=== PATIENT | male | born 1960 | race Caucasian/White ===

== ENCOUNTER → 2016-09-21 | Outpatient (CLI) | payer BC ==
[~2016-09-21] MED LIST: /BACL20TA OR; /DULO30CA OR; /ROPI1TA OR; LOVA20TA2 OR; NORT25CA2 OR; OXYB10TA OR; PREG100CA OR; VICO5TAB OR; ZANA4CAP OR
--- NOTE | 2016-09-29 01:10 | ECWPNPC ---
PATIENT NAME: ERVIN LAUREANO : 1960 GENDER: MALE VISIT DATE: 09/21/2016 DISCHARGE DATE: 09/21/16 0000 VISIT LOCKED DATE TIME: PHYSICIAN: JAMES BARRERA RESOURCE: JAMES ABRRERA REASON FOR APPOINTMENT 1. BACK AND LEGS HISTORY OF PRESENT ILLNESS HISTORY OF PRESENT ILLNESS: HERE FOR POST PROC. F/U.HAD BILAT. LUMBAR FACET BLOCK 05-28-16.REPORTS ONE MONTH IMPROVEMENT THEN PAIN GRADUALLY RETURNED TO BASELINE.HE DOESNT WANT ANYMORE PROCEDURES AT THIS POINT.FOLLOWS WITH [facility] FOR MEDICINE MANAGEMENT.RATING PAIN VAS 7/10.PAIN AGGREVATED BY TWISTING.RELIEVED WITH PILLOW PROPPING AND STRETCHING. FALL RISK SCREENING: SCREENING :NO FALLS IN THE PAST YEAR CURRENT MEDICATIONS TAKING LOVASTATIN 40 MG TABLET 1 TABLET WITH A MEAL ORALLY ONCE A DAY TAKING MIRALAX 1 PACKET 1 PACKET MIXED WITH 8 OUNCES OF FLUID ORALLY ONCE A DAY NEEDED TAKING VOLTAREN 1 % GEL APPLY 3 G TO LOWER BACK EXTERNALLY 2-3 TIMES A DAY NEEDED TAKING LYRICA 100 MG CAPSULE 1 CAPSULE-() ORALLY TWICE A DAY TAKING MILK OF MAGNESIA 400 MG/5ML SUSPENSION 5 ML NEEDED ORALLY TWICE A DAY TAKING CHLORTHALIDONE 25 MG TABLET 1 TABLET IN THE MORNING ORALLY ONCE A DAY TAKING AMBIEN 10 MG TABLET 1 TABLET AT BEDTIME NEEDED ORALLY NEEDED FOR SLEEP AT BEDTIME IF BENADRY FAILED X 1.5HRS MDD:1 TAKING NORCO 7.5-325 MG TABLET 1 TABLET NEEDED ORALLY EVERY 6 HRS (MDD: 4) TAKING PAMELOR 25 MG CAPSULE 1 CAPSULE (DR. RICKS) ORALLY TWICE DAILY NOT-TAKING BACLOFEN 20 MG TABLET 2 TABLET () ORALLY FOUR TIMES DAILY NEEDED SPASM, NOTES: 05-27-16 PM NOT-TAKING TIZANIDINE HCL 4 MG CAPSULE 2 CAP (DR RICKS) ORALLY TWICE DAILY NEEDED SPASM, NOTES: 05-27-16 PM NOT-TAKING SENNA 8.6 MG TABLET 1 TABLET ORALLY TWICE DAILY NEEDED, NOTES: 05-27-16 PM NOT-TAKING MELATONIN 3 MG TABLET 1-3 TABLET AT BEDTIME NEEDED WITH FOOD ORALLY ONCE A DAY NEEDED, NOTES: NONE NOT-TAKING CYMBALTA 30 MG CAPSULE DELAYED RELEASE PARTICLES 1 CAPSULE ORALLY TWICE A DAY, NOTES: 05-27-16 PM NOT-TAKING CELEBREX 200 MG CAPSULE 1 CAPSULE ORALLY ONCE A DAY, NOTES: 05-27-16 PM NOT-TAKING REQUIP 1 MG TABLET 1 TABLET 1 TO 3 HOURS BEFORE BEDTIME ORALLY ONCE A DAY, NOTES: 05-27-16 PM NOT-TAKING VALIUM 10 MG TABLET 1 TABLET NEEDED ORALLY 1 TAB 1HR PRE PROC. MDD1, NOTES: 05-28-16924 NOT-TAKING OXYCODONE HCL 5 MG TABLET 2 ORALLY 2 TAB 1HR PRE PROC. MDD2, NOTES: 05-28-16924 NOT-TAKING OXYBUTYNIN CHLORIDE 10 MG TABLET EXTENDED RELEASE 24 HOUR 1 TAB(DR. RICKS) ORALLY DAILY NOT-TAKING NORCO 5-325 MG TABLET 1/2 TABLET NEEDED ORALLY EVERY 6 HRS NOT-TAKING NASONEX 50 MCG/ACT SUSPENSION 2 SPRAYS IN EACH NOSTRIL NASALLY TWICE A DAY NOT-TAKING ROZEREM 8 MG TABLET 1 TABLET AT BEDTIME NEEDED ORALLY ONCE A DAY NOT-TAKING TECFIDERA 240 MG CAPSULE DELAYED RELEASE 1 CAPSULE ORALLY TWICE A DAY (DR RICKS) NOT-TAKING METHOTREXATE 2.5 MG TABLET 3 TABLETS ORALLY WEEKLY NOT-TAKING MAXALT-DIRECTOR WRITING 10 MG TABLET DISPERSIBLE 1 TAB (DR. RICKS) ORALLY NEEDED FOR MIGRAINE NOT-TAKING FLUOCINOLONE ACETONIDE SCALP 0.01 % OIL 1 APPLICATION TO AFFECTED AREA AT BEDTIME EXTERNALLY ONCE A DAY (OVERNIGHT OR >4HR BEFORE WASHING) MEDICATION LIST REVIEWED AND RECONCILED WITH THE PATIENT PAST MEDICAL HISTORY HYPERTENSION FATTY LIVER INSOMNIA HYPERCHOLESTEROLEMIA COPD MULTIPLE SCLEROSIS OTHER AND UNSPECIFIED ANGINA PECTORIS EPISTAXIS CHRONIC OBSTRUCTIVE ASTHMA, UNSPECIFIED OTHER SPECIFIED DISORDER OF PROSTATE ALLERGIES COPAXONE: INCREASED LIVER FUNCTION: SIDE EFFECTS AVENEX: INCREASED LFT'S: SIDE EFFECTS ENVIRONMENTAL ALLERGIES: CONGESTION: ALLERGY CEFZIL: SWELLING: ALLERGY SOCIAL HISTORY GENERAL: TOBACCO USE ARE YOU A:NONSMOKER LEARNING BARRIERS / SPECIAL NEEDS ORIENTED TO PLAN OF CARE: PATIENT, PAIN MANAGEMENT PATIENT, ORIENTED TO PLAN OF CARE: PATIENT, PAIN MANAGEMENT PATIENT. NEW PATIENT PAIN DIARY TODAY'S VISITNOTES FROM 0-10, WHAT LEVEL IS YOUR PAIN TODAY?0 PAIN CLINIC PFS, CLERGY, PUBLIC HEALTH REFERRALS PFS REFERRAL NEEDED?NO CLERGY REFERRAL NEEDED?NO PUBLIC HEALTH REFERRAL NEEDED?NO WAS THE PROVIDER NOTIFIED OF ANY PERTINENT INFO?NO PFS REFERRAL NEEDED?NO CLERGY REFERRAL NEEDED?NO PUBLIC HEALTH REFERRAL NEEDED?NO WAS THE PROVIDER NOTIFIED OF ANY PERTINENT INFO?NO REVIEW OF SYSTEMS CONSTITUTIONAL: ANY CHANGE IN YOUR MEDICAL CONDITION? NO . CHILLS NO . FEVER NO . INFECTION: DO YOU HAVE NEW INFECTIONS? NO . DO YOU HAVE HISTORY OF MRSA? NO . MUSCULOSKELETAL: ANY NEW PATTERNS OF PAIN OR NUMBNESS? YES, PAIN IN LOW BACK HAS EXTENDED TO THE LEFT SIDE . GASTROENTEROLOGY: ANY NEW CHANGE IN BOWEL CONTROL? NO . GENITOURINARY: ANY NEW CHANGE IN BLADDER CONTROL? NO . IS THERE A CHANCE YOU COULD BE ? NO . HEMATOLOGY/LYMPH: DO YOU TAKE ANY BLOOD THINNERS? (FOR EXAMPLE- COUMADIN, PLAVIX, AGGRENOX, PLATEL, PRADAXA, OR XARELTO) NO . WHEN WAS YOUR LAST DOSE? DATE: TIME: . NEUROLOGY: HAVE YOU FALLEN IN THE PAST 6 MONTHS? NO . ANY NEW EXTREMITY NUMBNESS OR WEAKNESS? NO . CARDIOLOGY: DO YOU HAVE A PACEMAKER OR DEFIBRILLATOR? NO . RESPIRATORY: HAVE YOU BEEN SICK IN THE PAST WEEK? NO . FEVER NO . FLU LIKE SYMPTOMS? NO . COUGH NO . INTEGUMENTARY: DO YOU HAVE ANY RASHES OR OPEN SORES? NO . ALLERGIC/IMMUNO: ARE YOU ALLERGIC TO SHELLFISH OR IV DYE? NO . ANY NEW ALLERGIES? NO . PSYCHIATRIC: DO YOU HAVE THOUGHTS OF HURTING YOURSELF OR SOMEONE ELSE? NO . ARE YOU ABUSED, NEGLECTED, OR IN AN UNSAFE ENVIRONMENT? NO . ENDOCRINOLOGY: ARE YOU DIABETIC? NO . OTHER: DO YOU NEED ANY PRESCRIPTIONS? NO . IF YES, PLEASE LIST: ____ . ANY NEW PROBLEMS WITH YOUR MEDICATIONS? NO . WHEN DID YOU LAST EAT? ____ . WHEN DID YOU LAST DRINK? ____ . WHAT DID YOU LAST DRINK? ____ . NAME OF PERSON DRIVING YOU HOME? ____ . DO YOU HAVE ANY OTHER QUESTIONS OR CONCERNS NO . REVIEWED BY: PROVIDER: JAMES BARRETO . VITAL SIGNS WT 265.8 LBS, HT 72 IN, BMI 36.05 INDEX, BP 158/80 MANUAL, HR 84 /MIN, RR 18 /MIN, TEMP 97.9 F, OXYGEN SAT % 96, NA INITIALS TL 1455, REVIEWED BY: CS. EXAMINATION GENERAL EXAMINATION: LUNGS:LUNG SOUNDS ARE CLEAR. HEART:HEART RATE REGULAR. MUSCULOSKELETAL:*, MUSCLE STRENGTH TESTING 5/5 BILATERAL, PALPATION: POSITIVE FOR PAIN OVER L/S SPINE. POSITIVE FOR PAIN OVER L/S PARSPINALS. DIAGNOSTIC:REVIEWED MRI L/S SPINE -02-26-16. ASSESSMENTS OSTEOARTHRITIS OF SPINE WITH RADICULOPATHY, LUMBAR REGION - M47.26 (PRIMARY) SPINAL STENOSIS OF LUMBOSACRAL REGION - M48.07 PROCEDURE CODES FA211 ESTABILISHED PATIENT [facility] CHARGE DISPOSITION & COMMUNICATION FOLLOW UP DISCHARGE TO PRIMARY CARE ELECTRONICALLY SIGNED BY MARY LOU GILLIAM ON 09/28/2016 AT 12:31 PM EDT DISCLAIMER : THIS IS A VISIT SUMMARY EXTRACTED FROM THE [employer] CHART. IT IS NOT A COPY OF THE [employer] PROGRESS NOTE. [place]
== END ==
LOC: M PAIN 15:00
PROVIDERS: ATTEND Nurse Practitioner Family
DX: Z09 Encounter for follow-up examination after completed treatment for conditions other than malignant neoplasm (principal); G89.29 Other chronic pain; M47.26 Other spondylosis with radiculopathy, lumbar region; M48.07 Spinal stenosis, lumbosacral region; I10 Essential (primary) hypertension; K76.0 Fatty (change of) liver, not elsewhere classified; G47.00 Insomnia, unspecified; E78.00 Pure hypercholesterolemia, unspecified; J44.9 Chronic obstructive pulmonary disease, unspecified; I20.9 Angina pectoris, unspecified; G35 Multiple sclerosis; R04.0 Epistaxis; Z88.8 Allergy status to other drugs, medicaments and biological substances; Z79.891 Long term (current) use of opiate analgesic; Z79.899 Other long term (current) drug therapy

== ENCOUNTER → 2016-12-16 | Outpatient (CLI) | payer BC, OTHER ==
--- NOTE | 2016-12-16 23:19 | ECWPNPC ---
PATIENT NAME: ERVIN LAUREANO : 1960 GENDER: MALE VISIT DATE: 12/16/2016 DISCHARGE DATE: 12/16/16 1134 VISIT LOCKED DATE TIME: PHYSICIAN: JAMES BARRERA RESOURCE: JAMES BARRERA REASON FOR APPOINTMENT 1. BACK HISTORY OF PRESENT ILLNESS HISTORY OF PRESENT ILLNESS: HERE FOR F/U CHRONIC LOW BACK PAIN AND BILATERAL LEG PAIN AND PARATHESIAS.HAS MULTIPLE SCLEROSIS DX AGE 23 [address] RICKS.HAD BILAT. LUMBAR FACET BLOCK 05-28-16.REPORTED ONE MONTH IMPROVEMENT THEN PAIN GRADUALLY RETURNED TO BASELINE.HE DOESNT WANT ANYMORE PROCEDURES AT THIS POINT.FOLLOWS WITH [facility]IMARY CARE FOR MEDICINE MANAGEMENT.RATING PAIN VAS 10/10.PAIN AGGREVATED BY TWISTING.RELIEVED WITH PILLOW PROPPING AND STRETCHING.PATIENT IS ASKING FOR STRONGER PAIN MEDICATION.DIAMANTE REQUESTED HE HAVE [facility]IMARY [facility] CONTACT US IN REGARDS TO OPIOD PAIN MEDICATION MANAGEMENT. PAIN THE PATIENT DESCRIBES THE PAIN... THE PATIENT DESCRIBES THE PAIN... FALL RISK SCREENING: SCREENING :NO FALLS IN THE PAST YEAR CURRENT MEDICATIONS TAKING AMBIEN 10 MG TABLET 1 TABLET AT BEDTIME NEEDED ORALLY NEEDED FOR SLEEP AT BEDTIME IF BENADRY FAILED X 1.5HRS MDD:1 TAKING CHLORTHALIDONE 25 MG TABLET 1 TABLET IN THE MORNING ORALLY ONCE A DAY TAKING LOVASTATIN 40 MG TABLET 1 TABLET WITH A MEAL ORALLY ONCE A DAY TAKING REQUIP 1 MG TABLET 1 TABLET 1 TO 3 HOURS BEFORE BEDTIME ORALLY ONCE A DAY, NOTES: 05-27-16 PM TAKING MIRALAX 1 PACKET 1 PACKET MIXED WITH 8 OUNCES OF FLUID ORALLY ONCE A DAY NEEDED TAKING VOLTAREN 1 % GEL APPLY 3 G TO LOWER BACK EXTERNALLY 2-3 TIMES A DAY NEEDED TAKING LYRICA 100 MG CAPSULE 1 CAPSULE-() ORALLY TWICE A DAY TAKING MILK OF MAGNESIA 400 MG/5ML SUSPENSION 5 ML NEEDED ORALLY TWICE A DAY TAKING PAMELOR 25 MG CAPSULE 1 CAPSULE (DR. RICKS) ORALLY TWICE DAILY NEEDED TAKING BACLOFEN 20 MG TABLET 2 TABLET () ORALLY FOUR TIMES DAILY NEEDED SPASM, NOTES: 05-27-16 PM TAKING TIZANIDINE HCL 4 MG CAPSULE 2 CAP (DR RICKS) ORALLY TWICE DAILY NEEDED SPASM, NOTES: 05-27-16 PM TAKING SENNA 8.6 MG TABLET 1 TABLET ORALLY TWICE DAILY NEEDED, NOTES: 05-27-16 PM TAKING MELATONIN 3 MG TABLET 1-3 TABLET AT BEDTIME NEEDED WITH FOOD ORALLY ONCE A DAY NEEDED, NOTES: NONE TAKING CYMBALTA 30 MG CAPSULE DELAYED RELEASE PARTICLES 1 CAPSULE ORALLY TWICE A DAY, NOTES: 05-27-16 PM TAKING CELEBREX 200 MG CAPSULE 1 CAPSULE ORALLY ONCE A DAY, NOTES: 05-27-16 PM TAKING OXYBUTYNIN CHLORIDE 10 MG TABLET EXTENDED RELEASE 24 HOUR 1 TAB(DR. RICKS) ORALLY DAILY TAKING NASONEX 50 MCG/ACT SUSPENSION 2 SPRAYS IN EACH NOSTRIL NASALLY TWICE A DAY TAKING ROZEREM 8 MG TABLET 1 TABLET AT BEDTIME NEEDED ORALLY ONCE A DAY TAKING MAXALT-HANDS HANGER 10 MG TABLET DISPERSIBLE 1 TAB (DR. RICKS) ORALLY NEEDED FOR MIGRAINE TAKING NORCO 7.5-325 MG TABLET 1 TABLET NEEDED ORALLY EVERY 8 HRS TAKING TRAZODONE HCL 50 MG TABLET 1 TABLET AT BEDTIME NEEDED ORALLY ONCE A DAY NOT-TAKING CLARITIN 10 MG TABLET 1 TABLET ORALLY ONCE A DAY NOT-TAKING ZOFRAN 4 MG/5ML SOLUTION 10 ML ORALLY ONCE A DAY NOT-TAKING AZITHROMYCIN (5 DAY) 250 MG TABLET DIRECTED ORALLY 2 PILLS ON DAY 1, THEN 1 PILL DAILY UNTIL GONE NOT-TAKING VALIUM 10 MG TABLET 1 TABLET NEEDED ORALLY 1 TAB 1HR PRE PROC. MDD1, NOTES: 05-28-16924 NOT-TAKING OXYCODONE HCL 5 MG TABLET 2 ORALLY 2 TAB 1HR PRE PROC. MDD2, NOTES: 05-28-16924 NOT-TAKING NORCO 5-325 MG TABLET 1/2 TABLET NEEDED ORALLY EVERY 6 HRS NOT-TAKING TECFIDERA 240 MG CAPSULE DELAYED RELEASE 1 CAPSULE ORALLY TWICE A DAY (DR RICKS) NOT-TAKING METHOTREXATE 2.5 MG TABLET 3 TABLETS ORALLY WEEKLY NOT-TAKING FLUOCINOLONE ACETONIDE SCALP 0.01 % OIL 1 APPLICATION TO AFFECTED AREA AT BEDTIME EXTERNALLY ONCE A DAY (OVERNIGHT OR >4HR BEFORE WASHING) MEDICATION LIST REVIEWED AND RECONCILED WITH THE PATIENT PAST MEDICAL HISTORY HYPERTENSION FATTY LIVER INSOMNIA HYPERCHOLESTEROLEMIA COPD MULTIPLE SCLEROSIS OTHER AND UNSPECIFIED ANGINA PECTORIS EPISTAXIS CHRONIC OBSTRUCTIVE ASTHMA, UNSPECIFIED OTHER SPECIFIED DISORDER OF PROSTATE ALLERGIES COPAXONE: INCREASED LIVER FUNCTION: SIDE EFFECTS AVENEX: INCREASED LFT'S: SIDE EFFECTS ENVIRONMENTAL ALLERGIES: CONGESTION: ALLERGY CEFZIL: SWELLING: ALLERGY SURGICAL HISTORY 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 YES, LBP INCREASED FROM INTERMITTENT TO CONSTANT, PT STATES PAIN IS 8-9/10 . CHILLS NO . FEVER NO . INFECTION: DO YOU HAVE NEW INFECTIONS? NO . DO YOU HAVE HISTORY OF MRSA? NO . MUSCULOSKELETAL: ANY NEW PATTERNS OF PAIN OR NUMBNESS? YES, INCREASED IN INTENSITY . GASTROENTEROLOGY: ANY NEW CHANGE IN BOWEL CONTROL? NO . GENITOURINARY: ANY NEW CHANGE IN BLADDER CONTROL? NO . IS THERE A CHANCE YOU COULD BE ? NO . HEMATOLOGY/LYMPH: DO YOU TAKE ANY BLOOD THINNERS? (FOR EXAMPLE- COUMADIN, PLAVIX, AGGRENOX, PLATEL, PRADAXA, OR XARELTO) NO . WHEN WAS YOUR LAST DOSE? DATE: TIME: . NEUROLOGY: HAVE YOU FALLEN IN THE PAST 6 MONTHS? YES, FELL DOWN 3 STEPS LANDING ON CONCRETE FLOOR. PT DENIES MAJOR INJURIES REQUIRING MEDICAL ATTENTION. PT REPORTS FALL RESULTED FROM PAIN. . ANY NEW EXTREMITY NUMBNESS OR WEAKNESS? NO . CARDIOLOGY: DO YOU HAVE A PACEMAKER OR DEFIBRILLATOR? NO . RESPIRATORY: HAVE YOU BEEN SICK IN THE PAST WEEK? NO . FEVER NO . FLU LIKE SYMPTOMS? NO . COUGH NO . INTEGUMENTARY: DO YOU HAVE ANY RASHES OR OPEN SORES? NO . ALLERGIC/IMMUNO: ARE YOU ALLERGIC TO SHELLFISH OR IV DYE? NO . ANY NEW ALLERGIES? NO . PSYCHIATRIC: DO YOU HAVE THOUGHTS OF HURTING YOURSELF OR SOMEONE ELSE? NO . ARE YOU ABUSED, NEGLECTED, OR IN AN UNSAFE ENVIRONMENT? NO . ENDOCRINOLOGY: ARE YOU DIABETIC? NO . OTHER: DO YOU NEED ANY PRESCRIPTIONS? NO. PT STATES PCP DR SCHWAB PRESCRIBED PT VICODIN, THEN TOOK HIM OFF VICODIN AND TOLD HIM TO COME TO PAIN CLINIC . IF YES, PLEASE LIST: ____ . ANY NEW PROBLEMS WITH YOUR MEDICATIONS? NO . WHEN DID YOU LAST EAT? ____ . WHEN DID YOU LAST DRINK? ____ . WHAT DID YOU LAST DRINK? ____ . NAME OF PERSON DRIVING YOU HOME? ____ . DO YOU HAVE ANY OTHER QUESTIONS OR CONCERNS NO . REVIEWED BY: PROVIDER: JAMES BARRETO . VITAL SIGNS WT 270 LBS, HT 72 IN, BMI 36.61 INDEX, BP 145/78 MM HG, HR 72 /MIN, RR 20 /MIN, TEMP 98.4 F, OXYGEN SAT % 97%, SAFE IN ENV? (Y/N) Y, NA INITIALS SC 10:53, REVIEWED BY: EM. EXAMINATION GENERAL EXAMINATION: LUNGS:LUNG SOUNDS ARE CLEAR. HEART:HEART RATE REGULAR. MUSCULOSKELETAL:*, MUSCLE STRENGTH TESTING 3/5 RIGHT, AND 5/5 LEFT. PALPATION: POSITIVE FOR PAIN OVER L/S SPINE. POSITIVE FOR PAIN OVER L/S PARSPINALSNEUROMUSCULATURE-REPORTS PARATHESIAS TO LIGHT TOUCH R>L. DIAGNOSTIC:REVIEWED MRI L/S SPINE -02-26-16. ASSESSMENTS OSTEOARTHRITIS OF SPINE WITH RADICULOPATHY, LUMBAR REGION - M47.26 (PRIMARY) SPINAL STENOSIS OF LUMBOSACRAL REGION - M48.07 NEUROPATHY - G62.9 TREATMENT OSTEOARTHRITIS OF SPINE WITH RADICULOPATHY, LUMBAR REGION INCREASE LYRICA CAPSULE, 200 MG, 1, ORALLY, TWICE A DAY, 30 DAYS, 60, REFILLS 2 PROCEDURE CODES FA211 ESTABILISHED PATIENT [facility] CHARGE DISPOSITION & COMMUNICATION FOLLOW UP 2 MONTHS ELECTRONICALLY SIGNED BY MARY LOU GILLIAM ON 12/16/2016 AT 01:43 PM EDT DISCLAIMER : THIS IS A VISIT SUMMARY EXTRACTED FROM THE [employer] CHART. IT IS NOT A COPY OF THE [employer] PROGRESS NOTE. [place]
== END ==
LOC: M PAIN 10:00
PROVIDERS: ATTEND Nurse Practitioner Family
DX: G89.29 Other chronic pain (principal); M47.26 Other spondylosis with radiculopathy, lumbar region; M48.07 Spinal stenosis, lumbosacral region; G62.9 Polyneuropathy, unspecified; I10 Essential (primary) hypertension; F51.01 Primary insomnia; E78.2 Mixed hyperlipidemia; J44.9 Chronic obstructive pulmonary disease, unspecified; G35 Multiple sclerosis; J30.89 Other allergic rhinitis; Z88.8 Allergy status to other drugs, medicaments and biological substances; Z79.899 Other long term (current) drug therapy

== ENCOUNTER → 2016-12-21 | Outpatient (REF) | payer BC ==
[2016-12-21 14:13] LABS: ALBUMIN 3.9 GM/DL (3.2-5.2); ALBUMIN/GLOBULIN RATIO 1.34 (1.00-1.93); ALKALINE PHOSPHATASE 155 U/L (45-117); ALT/SGPT 236 U/L (12-78); ANION GAP 5 MEQ/L (8-16); AST/SGOT 239 U/L (15-37); BILIRUBIN,TOTAL 0.9 MG/DL (0.2-1.0); BLOOD UREA NITROGEN 7 MG/DL (7-18); CALCIUM LEVEL 10.4 MG/DL (8.5-10.1); CARBON DIOXIDE LEVEL 33 MEQ/L (21-32); CHLORIDE LEVEL 101 MEQ/L (98-107); CREATININE FOR GFR 0.68 MG/DL (0.70-1.30); GLOMERULAR FILTRATION RATE > 60.0 (>56); GLUCOSE, FASTING 83 MG/DL (70-105); POTASSIUM SERUM 3.8 MEQ/L (3.5-5.1); SODIUM LEVEL 139 MEQ/L (136-145); TOTAL PROTEIN 6.8 GM/DL (6.4-8.2)
[2016-12-21 14:15] LABS: FOLATE 10.6 NG/ML; VITAMIN B12 LEVEL 439 PG/ML
[2016-12-21 14:22] LABS: BASO % 0.6 % (0.0-1.0); EOS # 0.2 K/mm3 (0.0-0.50); EOS % 2.8 % (0.0-3.0); LARGE UNSTAINED CELL # 0.1 K/mm3 (0.0-0.4); LARGE UNSTAINED CELL % 1.5 % (0.0-4.0); LYMPH # 1.3 K/mm3 (1.5-4.5); LYMPH % 21.3 % (24.0-44.0); MEAN CORPUSCULAR HEMOGLOBIN 34.4 pg (27.0-33.0); MEAN CORPUSCULAR HGB CONC 34.4 g/dl (32.0-36.5); MEAN CORPUSCULAR VOLUME 99.9 fl (80.0-96.0); MONO # 0.5 K/mm3 (0.0-0.8); MONO % 8.9 % (0.0-5.0); NEUTROPHILS # 3.7 K/mm3 (1.8-7.7); NEUTROPHILS % 64.8 % (36.0-66.0); PLATELET COUNT, AUTOMATED 187 k/mm3 (150-450); WHITE BLOOD COUNT 5.8 K/mm3 (4.0-10.0)
== END ==
LOC: M LABDRAW1 13:16
PROVIDERS: ATTEND Psychiatry & Neurology Neurology
DX: G35 Multiple sclerosis (principal)

== ENCOUNTER 2017-01-04 16:10 | Emergency (ER) | payer OTHER, BC ==
[~2017-01-04] VITALS: Ht 180.3 cm; Wt 120.6 kg
[2017-01-04] MEDS ORDERED: LORA10TA2 (16:22)
[2017-01-04] MEDS ORDERED: ROPI1TAB (16:22)
[2017-01-04] MEDS ORDERED: OXYB10TA (16:22)
[2017-01-04] MEDS ORDERED: DULO1CAP2 (16:22)
[2017-01-04] MEDS ORDERED: TIZANIDINE (16:22)
[2017-01-04] MEDS ORDERED: BACL1TAB9 (16:22)
[2017-01-04] MEDS ORDERED: HYDR-3716 (16:22)
[2017-01-04] MEDS ORDERED: NORT25CA2 (16:22)
[2017-01-04] MEDS ORDERED: LOVA40TA (16:22)
[2017-01-04] MEDS ORDERED: CHLO125TA (16:22)
[2017-01-04] MEDS ORDERED: ZOLM5TAB2 (16:22)
[2017-01-04] MEDS ORDERED: ZOLP10TA2 PO (16:22)
[2017-01-04] MEDS ORDERED: TRAZ50TA11 (16:22)
[2017-01-04] MEDS ORDERED: PREG100CA (16:22)
[2017-01-04] MEDS ORDERED: PERCOCET 5MG/325MG TAB PO ONE (17:30)
[2017-01-04] MEDS ORDERED: KETOROLAC 60 MG/2 ML VIAL (J1885) IM ONE (17:30)
[2017-01-04] MEDS ORDERED: diazePAM 5 MG TAB PO ONE (17:30)
--- NOTE | 2017-01-04 20:40 | REPUSA ---
MRI of the lumbar spine without contrast Clinical statement: Pain. Technique: Multiecho multiplanar MRI images of the lumbar spine were obtained without administration of contrast. Comparison: 10/27/2015. Findings: The lumbar vertebral bodies are in satisfactory position and alignment. No fractures or dis locations are demonstrated. Normal heterogeneous bone marrow signal is noted. No osseous tumors are s een. The intervertebral disc heights are well maintained and demonstrate normal signal. The filum ter minale and conus medullaris appear unremarkable. The spinal cord demonstrates normal signal and conto ur. The surrounding soft tissues are within normal limits. At the lumbar vertebral levels, there is no evidence of disc herniation or protrusion. There is no ce ntral canal stenosis. The neural foramina are patent bilaterally. Impression: No focal abnormality to explain the patient's pain.
[2017-01-04] MEDS ORDERED: SKEL800T97 PO (20:53)
[2017-01-04 20:57] VITALS: BP 169/77
== END 2017-01-04 20:59 | disposition home or self-care (01) ==
LOC: M ED 17:18
DX: G89.29 Other chronic pain (principal); M54.5 Low back pain; I10 Essential (primary) hypertension; G35 Multiple sclerosis; Z79.899 Other long term (current) drug therapy; Z88.0 Allergy status to penicillin; Z88.1 Allergy status to other antibiotic agents; Z87.891 Personal history of nicotine dependence
CPT/HCPCS: 72148; 96372; 99282; J1885

== ENCOUNTER → 2017-01-07 | Outpatient (CLI) | payer BC ==
[~2017-01-07] MED LIST changes: +BACL-67; +CHLO125TA; +DULO1CAP2; +HYDR-3716; +LORA10TA2; +LOVA40TA; +LYRI100C10; +NORT25CA2; +OXYB10TA; +ROPI1TAB; +SKEL-29 PO; +TIZANIDINE; +TRAZ50TA4; +ZOLM5TAB2; +ZOLP10TA2
--- NOTE | 2017-01-12 23:40 | ECWPNPC ---
PATIENT NAME: ERVIN LAUREANO : 1960 GENDER: MALE VISIT DATE: 01/07/2017 DISCHARGE DATE: 01/07/17 1548 VISIT LOCKED DATE TIME: PHYSICIAN: JAMES BARRERA RESOURCE: JAMES BARRERA REASON FOR APPOINTMENT 1. MEDS HISTORY OF PRESENT ILLNESS HISTORY OF PRESENT ILLNESS: HERE FOR F/U AND MANAGEMENT OF CHRONIC LOW BACK AND RIGHT LEG PAIN.RATING PAIN VAS 9/10.RAN OUT OF PAIN MEDICATION 2 WEEKS AGO AND PAIN HAS BECOME UNBEARABLE.WENT TO ER FOR SEVERE PAIN FLARE ON 02-03-17.AT HIS LAST VISIT ,I INCREASED LYRICA TO 200MG BID.PATIENT STATES HE DID NOT HAVE ANY IMPROVEMENT.HE WAS GIVEN A SMALL AMOUNT OF SKELAXIN AND PERCOCET AT MOST RECENT ER VISIT THAT PATIENT FOUND HELPFUL.WE ARE IN PROCESS OF COMMUNICATING WITH PRIMARY CARE REGARDING [facility] USE OF OPIOD PAIN MEDICATION AND MEDICINE MANAGEMENT.HE IS NOT INTERESTED IN INJECTION THERAPY. PAIN THE PATIENT DESCRIBES THE PAIN... FALL RISK SCREENING: SCREENING :NO FALLS IN THE PAST YEAR CURRENT MEDICATIONS TAKING TRAZODONE HCL 50 MG TABLET 1 TABLET AT BEDTIME NEEDED ORALLY ONCE A DAY TAKING LYRICA 200 MG CAPSULE 1 ORALLY TWICE A DAY TAKING AMBIEN 10 MG TABLET 1 TABLET AT BEDTIME NEEDED ORALLY NEEDED FOR SLEEP AT BEDTIME IF BENADRY FAILED X 1.5HRS MDD:1 TAKING CHLORTHALIDONE 25 MG TABLET 1 TABLET IN THE MORNING ORALLY ONCE A DAY TAKING LOVASTATIN 40 MG TABLET 1 TABLET WITH A MEAL ORALLY ONCE A DAY TAKING REQUIP 1 MG TABLET 1 TABLET 1 TO 3 HOURS BEFORE BEDTIME ORALLY ONCE A DAY TAKING MIRALAX 1 PACKET 1 PACKET MIXED WITH 8 OUNCES OF FLUID ORALLY ONCE A DAY NEEDED TAKING VOLTAREN 1 % GEL APPLY 3 G TO LOWER BACK EXTERNALLY 2-3 TIMES A DAY NEEDED TAKING MILK OF MAGNESIA 400 MG/5ML SUSPENSION 5 ML NEEDED ORALLY TWICE A DAY TAKING PAMELOR 25 MG CAPSULE 1 CAPSULE (DR. RICKS) ORALLY TWICE DAILY NEEDED TAKING BACLOFEN 20 MG TABLET 2 TABLET () ORALLY FOUR TIMES DAILY NEEDED SPASM TAKING TIZANIDINE HCL 4 MG CAPSULE 2 CAP (DR RICKS) ORALLY TWICE DAILY NEEDED SPASM TAKING SENNA 8.6 MG TABLET 1 TABLET ORALLY TWICE DAILY NEEDED TAKING MELATONIN 3 MG TABLET 1-3 TABLET AT BEDTIME NEEDED WITH FOOD ORALLY ONCE A DAY NEEDED, NOTES: NONE TAKING CYMBALTA 30 MG CAPSULE DELAYED RELEASE PARTICLES 1 CAPSULE ORALLY TWICE A DAY TAKING CELEBREX 200 MG CAPSULE 1 CAPSULE ORALLY ONCE A DAY TAKING OXYBUTYNIN CHLORIDE 10 MG TABLET EXTENDED RELEASE 24 HOUR 1 TAB(DR. RICKS) ORALLY DAILY TAKING NASONEX 50 MCG/ACT SUSPENSION 2 SPRAYS IN EACH NOSTRIL NASALLY TWICE A DAY TAKING ROZEREM 8 MG TABLET 1 TABLET AT BEDTIME NEEDED ORALLY ONCE A DAY TAKING MAXALT-TROUT FARMER 10 MG TABLET DISPERSIBLE 1 TAB (DR. RICKS) ORALLY NEEDED FOR MIGRAINE TAKING NORCO 7.5-325 MG TABLET 1 TABLET NEEDED ORALLY EVERY 8 HRS TAKING PREDNISONE 20 MG TABLET 5 TABLETS X 3 DAYS, 4 TAB X 3 DAYS, 3 X 3 DAYS, 2 X 3 DAYS, 1 X 3 DAYS, 1/2 X 4 DAYS ORALLY ONCE A DAY TAKING METAXALONE 800 MG TABLET 1 TABLET ORALLY THREE TIMES A DAY NOT-TAKING CLARITIN 10 MG TABLET 1 TABLET ORALLY ONCE A DAY NOT-TAKING ZOFRAN 4 MG/5ML SOLUTION 10 ML ORALLY ONCE A DAY NOT-TAKING AZITHROMYCIN (5 DAY) 250 MG TABLET DIRECTED ORALLY 2 PILLS ON DAY 1, THEN 1 PILL DAILY UNTIL GONE NOT-TAKING VALIUM 10 MG TABLET 1 TABLET NEEDED ORALLY 1 TAB 1HR PRE PROC. MDD1, NOTES: 05-28-16924 NOT-TAKING OXYCODONE HCL 5 MG TABLET 2 ORALLY 2 TAB 1HR PRE PROC. MDD2, NOTES: 05-28-16924 NOT-TAKING NORCO 5-325 MG TABLET 1/2 TABLET NEEDED ORALLY EVERY 6 HRS NOT-TAKING TECFIDERA 240 MG CAPSULE DELAYED RELEASE 1 CAPSULE ORALLY TWICE A DAY (DR RICKS) NOT-TAKING METHOTREXATE 2.5 MG TABLET 3 TABLETS ORALLY WEEKLY NOT-TAKING FLUOCINOLONE ACETONIDE SCALP 0.01 % OIL 1 APPLICATION TO AFFECTED AREA AT BEDTIME EXTERNALLY ONCE A DAY (OVERNIGHT OR >4HR BEFORE WASHING) MEDICATION LIST REVIEWED AND RECONCILED WITH THE PATIENT PAST MEDICAL HISTORY HYPERTENSION FATTY LIVER INSOMNIA HYPERCHOLESTEROLEMIA COPD MULTIPLE SCLEROSIS OTHER AND UNSPECIFIED ANGINA PECTORIS EPISTAXIS CHRONIC OBSTRUCTIVE ASTHMA, UNSPECIFIED OTHER SPECIFIED DISORDER OF PROSTATE ALLERGIES COPAXONE: INCREASED LIVER FUNCTION: SIDE EFFECTS AVENEX: INCREASED LFT'S: SIDE EFFECTS ENVIRONMENTAL ALLERGIES: CONGESTION: ALLERGY CEFZIL: SWELLING: ALLERGY SURGICAL HISTORY 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 CONSTITUTIONAL: ANY CHANGE IN YOUR MEDICAL CONDITION? NO . CHILLS NO . FEVER NO . INFECTION: DO YOU HAVE NEW INFECTIONS? NO . DO YOU HAVE HISTORY OF MRSA? NO . MUSCULOSKELETAL: ANY NEW PATTERNS OF PAIN OR NUMBNESS? YES, PT STATES PAIN IN LOWER BACK AND RIGHT LEG WERE INTERMITTENT, AND NOW PAIN IS CONSTANT. PT STATES HE WENT TO [facility] ER ON 01/05/17 FOR LBP AND WAS TX'D WITH METAXALONE. PT STATES NEW RX TOOK AWAY BACK SPASMS & BROUGHT PAIN 02/25 TO 10/26.&NBSP;. GASTROENTEROLOGY: ANY NEW CHANGE IN BOWEL CONTROL? NO . GENITOURINARY: ANY NEW CHANGE IN BLADDER CONTROL? NO . IS THERE A CHANCE YOU COULD BE ? NO . HEMATOLOGY/LYMPH: DO YOU TAKE ANY BLOOD THINNERS? (FOR EXAMPLE- COUMADIN, PLAVIX, AGGRENOX, PLATEL, PRADAXA, OR XARELTO) NO . WHEN WAS YOUR LAST DOSE? DATE: TIME: . NEUROLOGY: HAVE YOU FALLEN IN THE PAST 6 MONTHS? NO . ANY NEW EXTREMITY NUMBNESS OR WEAKNESS? NO . CARDIOLOGY: DO YOU HAVE A PACEMAKER OR DEFIBRILLATOR? NO . RESPIRATORY: HAVE YOU BEEN SICK IN THE PAST WEEK? NO . FEVER NO . FLU LIKE SYMPTOMS? NO . COUGH NO . INTEGUMENTARY: DO YOU HAVE ANY RASHES OR OPEN SORES? NO . ALLERGIC/IMMUNO: ARE YOU ALLERGIC TO SHELLFISH OR IV DYE? NO . ANY NEW ALLERGIES? NO . PSYCHIATRIC: DO YOU HAVE THOUGHTS OF HURTING YOURSELF OR SOMEONE ELSE? NO . ARE YOU ABUSED, NEGLECTED, OR IN AN UNSAFE ENVIRONMENT? NO . ENDOCRINOLOGY: ARE YOU DIABETIC? NO . OTHER: DO YOU NEED ANY PRESCRIPTIONS? YES, ASKING FOR MORE METAXALONE . IF YES, PLEASE LIST: ____ . ANY NEW PROBLEMS WITH YOUR MEDICATIONS? NO . WHEN DID YOU LAST EAT? ____ . WHEN DID YOU LAST DRINK? ____ . WHAT DID YOU LAST DRINK? ____ . NAME OF PERSON DRIVING YOU HOME? ____ . DO YOU HAVE ANY OTHER QUESTIONS OR CONCERNS NO . VITAL SIGNS WT 266.8 LBS, HT 72 IN, BMI 36.18 INDEX, BP 154/83 MM HG, HR 73 /MIN, RR 16 /MIN, TEMP 97.8 F, OXYGEN SAT % 96%, SAFE IN ENV? (Y/N) Y, NA INITIALS TL 1448, REVIEWED BY: CASTRO. EXAMINATION GENERAL EXAMINATION: LUNGS:LUNG SOUNDS ARE CLEAR. HEART:HEART RATE REGULAR. MUSCULOSKELETAL:*, MUSCLE STRENGTH TESTING 3/5 RIGHT, AND 5/5 LEFT. PALPATION: POSITIVE FOR PAIN OVER L/S SPINE. POSITIVE FOR PAIN OVER L/S PARSPINALSNEUROMUSCULATURE-REPORTS PARATHESIAS TO LIGHT TOUCH R>L. DIAGNOSTIC:REVIEWED MRI L/S SPINE -02-26-16. ASSESSMENTS OSTEOARTHRITIS OF SPINE WITH RADICULOPATHY, LUMBAR REGION - M47.26 (PRIMARY) SPINAL STENOSIS OF LUMBOSACRAL REGION - M48.07 NEUROPATHY - G62.9 TREATMENT OSTEOARTHRITIS OF SPINE WITH RADICULOPATHY, LUMBAR REGION REFILL LYRICA CAPSULE, 200 MG, 1, ORALLY, TWICE A DAY, 30 DAYS, 60, REFILLS 2 REFILL TIZANIDINE HCL CAPSULE, 4 MG, 1, ORALLY, Q8H PRN, 30 DAY(S), 90, REFILLS 1 REFILL NORCO TABLET, 7.5-325 MG, 1 TABLET NEEDED, ORALLY, EVERY 8 HRS, 30 DAY(S), 90 TABLET, REFILLS 0 START LYRICA CAPSULE, 200 MG, 1 CAPSULE, ORALLY, TID MDD3, 30 DAY(S), 90, REFILLS 1 PROCEDURE CODES FA211 ESTABILISHED PATIENT [facility] CHARGE DISPOSITION & COMMUNICATION FOLLOW UP 4 WEEKS ELECTRONICALLY SIGNED BY MARY LOU GILLIAM ON 01/12/2017 AT 01:04 PM EDT DISCLAIMER : THIS IS A VISIT SUMMARY EXTRACTED FROM THE [employer] CHART. IT IS NOT A COPY OF THE [employer] PROGRESS NOTE. MTDD
== END ==
LOC: M PAIN 14:40
PROVIDERS: ATTEND Nurse Practitioner Family
DX: G89.29 Other chronic pain (principal); M47.26 Other spondylosis with radiculopathy, lumbar region; M48.07 Spinal stenosis, lumbosacral region; G62.9 Polyneuropathy, unspecified; M79.604 Pain in right leg; I10 Essential (primary) hypertension; F51.01 Primary insomnia; E78.2 Mixed hyperlipidemia; J44.9 Chronic obstructive pulmonary disease, unspecified; G35 Multiple sclerosis; J31.0 Chronic rhinitis; Z88.8 Allergy status to other drugs, medicaments and biological substances; Z79.899 Other long term (current) drug therapy

== ENCOUNTER 2017-01-25 14:00 | Outpatient (CLI) | payer BC ==
[~2017-01-25] VITALS: Ht 182.9 cm; Wt 109.1 kg
[~2017-01-25 14:00] MED LIST changes: -BACL-67; +BACL1TAB9; -LYRI100C10; +PREG100CA; -SKEL-29 PO; +SKEL800T97 PO; +TRAZ50TA11; -TRAZ50TA4; -ZOLP10TA2; +ZOLP10TA2 PO; +methylPREDNISolone 1,000 MG, VIAL MATE ADAPTER 1 EACH in D5W 250 ML IV ONE
[2017-01-25] MEDS ORDERED: ZOMI2.5T4 PO (16:13)
[2017-01-25] MEDS ORDERED: TIZA2CAP3 PO (16:13)
[2017-01-25] MEDS ORDERED: AMBI5TAB PO (16:14)
== END 2017-01-25 15:50 | disposition home or self-care (01) ==
LOC: M INFU 14:00
PROVIDERS: ATTEND Psychiatry & Neurology Neurology
DX: G35 Multiple sclerosis (principal); Z87.891 Personal history of nicotine dependence; Z88.1 Allergy status to other antibiotic agents; Z88.0 Allergy status to penicillin; Z79.899 Other long term (current) drug therapy
CPT/HCPCS: 96365; J2930

== ENCOUNTER 2017-01-26 11:52 | Outpatient (CLI) | payer BC ==
[~2017-01-26] VITALS: Ht 182.9 cm; Wt 109.1 kg
[~2017-01-26 11:52] MED LIST changes: +AMBI5TAB PO; +TIZA2CAP3 PO; +ZOMI2.5T4 PO; -methylPREDNISolone 1,000 MG, VIAL MATE ADAPTER 1 EACH in D5W 250 ML IV ONE
[2017-01-26] MEDS ORDERED: methylPREDNISolone 1,000 MG, VIAL MATE ADAPTER 1 EACH in D5W 250 ML IV ONE (13:00)
== END 2017-01-26 14:00 | disposition home or self-care (01) ==
LOC: M INFU 11:52
PROVIDERS: ATTEND Psychiatry & Neurology Neurology
DX: G35 Multiple sclerosis (principal); Z87.891 Personal history of nicotine dependence; Z88.0 Allergy status to penicillin; Z88.1 Allergy status to other antibiotic agents; Z79.899 Other long term (current) drug therapy
CPT/HCPCS: 96365; J2930

== ENCOUNTER 2017-01-28 09:23 | Outpatient (CLI) | payer BC ==
[~2017-01-28] VITALS: Ht 182.9 cm; Wt 109.0 kg
[2017-01-28] MEDS ORDERED: methylPREDNISolone 1,000 MG, VIAL MATE ADAPTER 1 EACH in D5W 250 ML IV ONE (09:30)
== END 2017-01-28 11:30 | disposition home or self-care (01) ==
LOC: M INFU 09:23
PROVIDERS: ATTEND Psychiatry & Neurology Neurology
DX: G35 Multiple sclerosis (principal); Z87.891 Personal history of nicotine dependence; Z79.899 Other long term (current) drug therapy; Z88.0 Allergy status to penicillin; Z88.1 Allergy status to other antibiotic agents
CPT/HCPCS: 96365; J2930

== ENCOUNTER 2017-01-29 14:39 | Outpatient (CLI) | payer BC ==
[~2017-01-29] VITALS: Ht 182.9 cm; Wt 81.8 kg
[~2017-01-29 14:39] MED LIST changes: +methylPREDNISolone 1,000 MG, VIAL MATE ADAPTER 1 EACH in D5W 250 ML IV ONE
== END 2017-01-29 16:00 | disposition home or self-care (01) ==
LOC: M INFU 14:39
PROVIDERS: ATTEND Psychiatry & Neurology Neurology
DX: G35 Multiple sclerosis (principal); Z87.891 Personal history of nicotine dependence; Z79.899 Other long term (current) drug therapy; Z88.0 Allergy status to penicillin; Z88.1 Allergy status to other antibiotic agents
CPT/HCPCS: 96365; J2930

== ENCOUNTER 2017-01-30 07:51 | Outpatient (CLI) | payer OTHER, BC ==
[~2017-01-30 07:51] MED LIST changes: -methylPREDNISolone 1,000 MG, VIAL MATE ADAPTER 1 EACH in D5W 250 ML IV ONE
[2017-01-30] MEDS ORDERED: methylPREDNISolone 1,000 MG, VIAL MATE ADAPTER 1 EACH in D5W 250 ML IV ONE (08:00)
== END 2017-01-30 09:30 | disposition home or self-care (01) ==
LOC: M INFU 07:51
PROVIDERS: ATTEND Psychiatry & Neurology Neurology
DX: G35 Multiple sclerosis (principal); Z88.0 Allergy status to penicillin; Z88.1 Allergy status to other antibiotic agents; Z79.899 Other long term (current) drug therapy; Z87.891 Personal history of nicotine dependence
CPT/HCPCS: 96374; J2930

== ENCOUNTER → 2017-02-15 | Outpatient (CLI) | payer BC, OTHER ==
--- NOTE | 2017-03-07 00:32 | ECWPNPC ---
PATIENT NAME: ERVIN LAUREANO : 1960 GENDER: MALE VISIT DATE: 02/15/2017 DISCHARGE DATE: 02/15/17 1031 VISIT LOCKED DATE TIME: PHYSICIAN: JAMES BARRERA RESOURCE: JAMES BARRERA REASON FOR APPOINTMENT 1. BACK/LEG HISTORY OF PRESENT ILLNESS HISTORY OF PRESENT ILLNESS: HERE FOR F/U AND MANAGEMENT OF CHRONIC LOW BACK PAIN AND GENERALIZED BACK PAIN.DESCRIBES PAIN CONSTANT THROBBING AND STABBING.REPORTS FALL INJURY 1 WEEK AGO AND HE WAS EVALUATED BY PRIMARY CARE.NO IMAGING WAS ORDERED.STATES ACUTE INCREASE IN PAIN POST FALL HAS IMPROVED.DENIES LOSS OF CONTROL OF BOWELS OR BLADDER.CURRENTLY USING HYDROCODONE 7.5/325 AND SKELAXIN 800MG PRN FOR PAIN WITH GOOD RESULTS.ALSO USING ICE AND HEAT.ALSO USING LYRICA 200MG TID.RATING PAIN VAS 8/10. PAIN THE PATIENT DESCRIBES THE PAIN... FALL RISK SCREENING: SCREENING :NO FALLS IN THE PAST YEAR CURRENT MEDICATIONS TAKING PANTOPRAZOLE SODIUM 20 MG TABLET DELAYED RELEASE 1 TABLET ORALLY ONCE A DAY TAKING CHLORTHALIDONE 25 MG TABLET 1 TABLET IN THE MORNING ORALLY ONCE A DAY TAKING TRAZODONE HCL 50 MG TABLET 1 TABLET AT BEDTIME NEEDED ORALLY ONCE A DAY TAKING AMBIEN 10 MG TABLET 1 TABLET AT BEDTIME NEEDED ORALLY NEEDED FOR SLEEP AT BEDTIME IF BENADRY FAILED X 1.5HRS MDD:1 TAKING LOVASTATIN 40 MG TABLET 1 TABLET WITH A MEAL ORALLY ONCE A DAY TAKING REQUIP 1 MG TABLET 1 TABLET 1 TO 3 HOURS BEFORE BEDTIME ORALLY ONCE A DAY TAKING MIRALAX 1 PACKET 1 PACKET MIXED WITH 8 OUNCES OF FLUID ORALLY ONCE A DAY NEEDED TAKING VOLTAREN 1 % GEL APPLY 3 G TO LOWER BACK EXTERNALLY 2-3 TIMES A DAY NEEDED TAKING MILK OF MAGNESIA 400 MG/5ML SUSPENSION 5 ML NEEDED ORALLY TWICE A DAY TAKING PAMELOR 25 MG CAPSULE 1 CAPSULE (DR. RICKS) ORALLY TWICE DAILY NEEDED TAKING SENNA 8.6 MG TABLET 1 TABLET ORALLY TWICE DAILY NEEDED TAKING MELATONIN 3 MG TABLET 1-3 TABLET AT BEDTIME NEEDED WITH FOOD ORALLY ONCE A DAY NEEDED, NOTES: NONE TAKING CYMBALTA 30 MG CAPSULE DELAYED RELEASE PARTICLES 1 CAPSULE ORALLY TWICE A DAY TAKING CELEBREX 200 MG CAPSULE 1 CAPSULE ORALLY ONCE A DAY TAKING OXYBUTYNIN CHLORIDE 10 MG TABLET EXTENDED RELEASE 24 HOUR 1 TAB(DR. RICKS) ORALLY DAILY TAKING NASONEX 50 MCG/ACT SUSPENSION 2 SPRAYS IN EACH NOSTRIL NASALLY TWICE A DAY TAKING ROZEREM 8 MG TABLET 1 TABLET AT BEDTIME NEEDED ORALLY ONCE A DAY TAKING MAXALT-CERTIFIED PHYSICIAN ASSISTANT 10 MG TABLET DISPERSIBLE 1 TAB (DR. RICKS) ORALLY NEEDED FOR MIGRAINE TAKING METAXALONE 800 MG TABLET 1 TABLET ORALLY THREE TIMES A DAY TAKING LYRICA 200 MG CAPSULE 1 ORALLY TWICE A DAY TAKING SKELAXIN 800 MG TABLET 1 TABLET ORALLY THREE TIMES A DAY TAKING CLARITIN 10 MG TABLET 1 TABLET ORALLY ONCE A DAY TAKING ASPIRIN 81 MG TABLET CHEWABLE 1 TABLET ORALLY ONCE A DAY TAKING NORCO 7.5-325 MG TABLET 1 TABLET NEEDED ORALLY EVERY 8 HRS NOT-TAKING BACLOFEN 20 MG TABLET 2 TABLET () ORALLY FOUR TIMES DAILY NEEDED SPASM NOT-TAKING TIZANIDINE HCL 4 MG CAPSULE 1 ORALLY Q8H PRN MEDICATION LIST REVIEWED AND RECONCILED WITH THE PATIENT PAST MEDICAL HISTORY HYPERTENSION INSOMNIA HYPERCHOLESTEROLEMIA COPD MULTIPLE SCLEROSIS LUMBAR DJD ALLERGIES COPAXONE: INCREASED LIVER FUNCTION: SIDE EFFECTS AVENEX: INCREASED LFT'S: SIDE EFFECTS ENVIRONMENTAL ALLERGIES: CONGESTION: ALLERGY CEFZIL: SWELLING: ALLERGY SURGICAL HISTORY 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 CONSTITUTIONAL: ANY CHANGE IN YOUR MEDICAL CONDITION? NO . CHILLS NO . FEVER NO . INFECTION: DO YOU HAVE NEW INFECTIONS? NO . DO YOU HAVE HISTORY OF MRSA? NO . MUSCULOSKELETAL: ANY NEW PATTERNS OF PAIN OR NUMBNESS? YES, GOTTEN WORSE . GASTROENTEROLOGY: ANY NEW CHANGE IN BOWEL CONTROL? NO . GENITOURINARY: ANY NEW CHANGE IN BLADDER CONTROL? NO . IS THERE A CHANCE YOU COULD BE ? NO . HEMATOLOGY/LYMPH: DO YOU TAKE ANY BLOOD THINNERS? (FOR EXAMPLE- COUMADIN, PLAVIX, AGGRENOX, PLATEL, PRADAXA, OR XARELTO) NO . WHEN WAS YOUR LAST DOSE? DATE: TIME: . NEUROLOGY: HAVE YOU FALLEN IN THE PAST 6 MONTHS? YES, PT STATES HE FELL FROM PAIN AND LOSS OF BALANCE. PT DENIES INJURIES REQUIRING MEDICAL ASSISTANCE . ANY NEW EXTREMITY NUMBNESS OR WEAKNESS? NO . CARDIOLOGY: DO YOU HAVE A PACEMAKER OR DEFIBRILLATOR? NO . RESPIRATORY: HAVE YOU BEEN SICK IN THE PAST WEEK? NO . FEVER NO . FLU LIKE SYMPTOMS? NO . COUGH NO . INTEGUMENTARY: DO YOU HAVE ANY RASHES OR OPEN SORES? NO . ALLERGIC/IMMUNO: ARE YOU ALLERGIC TO SHELLFISH OR IV DYE? NO . ANY NEW ALLERGIES? NO . PSYCHIATRIC: DO YOU HAVE THOUGHTS OF HURTING YOURSELF OR SOMEONE ELSE? NO . ARE YOU ABUSED, NEGLECTED, OR IN AN UNSAFE ENVIRONMENT? NO . ENDOCRINOLOGY: ARE YOU DIABETIC? NO . OTHER: DO YOU NEED ANY PRESCRIPTIONS? YES, NORCO . IF YES, PLEASE LIST: ____ . ANY NEW PROBLEMS WITH YOUR MEDICATIONS? NO . WHEN DID YOU LAST EAT? ____ . WHEN DID YOU LAST DRINK? ____ . WHAT DID YOU LAST DRINK? ____ . NAME OF PERSON DRIVING YOU HOME? ____ . DO YOU HAVE ANY OTHER QUESTIONS OR CONCERNS NO . VITAL SIGNS WT 272.0 LBS, HT 72 IN, BMI 36.89 INDEX, BP 152/80 MM HG, HR 82 /MIN, RR 18 /MIN, TEMP 96.8 F, OXYGEN SAT % 98%, SAFE IN ENV? (Y/N) Y, NA INITIALS TL 0954, REVIEWED BY: EM. EXAMINATION GENERAL EXAMINATION: LUNGS:LUNG SOUNDS ARE CLEAR. HEART:HEART RATE REGULAR. MUSCULOSKELETAL:*, MUSCLE STRENGTH TESTING 3/5 RIGHT, AND 5/5 LEFT. PALPATION: POSITIVE FOR PAIN OVER L/S SPINE. POSITIVE FOR PAIN OVER L/S PARSPINALSNEUROMUSCULATURE-REPORTS PARATHESIAS TO LIGHT TOUCH R>L. DIAGNOSTIC:REVIEWED MRI L/S SPINE -02-26-16. ASSESSMENTS OSTEOARTHRITIS OF SPINE WITH RADICULOPATHY, LUMBAR REGION - M47.26 (PRIMARY) SPINAL STENOSIS OF LUMBOSACRAL REGION - M48.07 NEUROPATHY - G62.9 TREATMENT OSTEOARTHRITIS OF SPINE WITH RADICULOPATHY, LUMBAR REGION CONTINUE METAXALONE TABLET, 800 MG, 1 TABLET, ORALLY, THREE TIMES A DAY CONTINUE LYRICA CAPSULE, 200 MG, 1, ORALLY, TWICE A DAY STOP BACLOFEN TABLET, 20 MG, 2 TABLET (), ORALLY, FOUR TIMES DAILY NEEDED SPASM STOP TIZANIDINE HCL CAPSULE, 4 MG, 1, ORALLY, Q8H PRN REFILL NORCO TABLET, 7.5-325 MG, 1 TABLET NEEDED, ORALLY, EVERY 8 HRS, 5 DAY(S), 15 TABLET, REFILLS 0 NOTES: ISTOP REGISTRY REVIEWED AND DEMNOSTRATES COMPLLIANCE. BRINGS IN MEDICATIONS WHICH IS APPROPRIATE FOR WHAT WAS DISPENSED. RISKS AND BENEFITS OF NARCOTIC/OPIOD MEDICATIONS WERE REVIEWED WITH PATIENT - THIS INCLUDES BUT IS NOT LIMITED TO RISK OF DEPENDANCE/DEVELOPMENT OF ADDICTION, MOOD DISTURBANCE AND DEPRESSION, OSTEOPOROSIS, HORMONAL AND LABIDAL CHANGES, RESPIRATORY DEPRESSION AND . PATIENT IS ADVISED NOT TO DRIVE WHILE ON THESE MEDICATIONS, . PROCEDURE CODES FA211 ESTABILISHED PATIENT [facility] CHARGE DISPOSITION & COMMUNICATION FOLLOW UP 4 WEEKS ELECTRONICALLY SIGNED BY MARY LOU GILLIAM ON 03/04/2017 AT 08:34 AM EDT DISCLAIMER : THIS IS A VISIT SUMMARY EXTRACTED FROM THE [employer] CHART. IT IS NOT A COPY OF THE [employer] PROGRESS NOTE. [facility]
== END ==
LOC: M PAIN 10:00
PROVIDERS: ATTEND Nurse Practitioner Family
DX: M47.26 Other spondylosis with radiculopathy, lumbar region (principal); M48.07 Spinal stenosis, lumbosacral region; G62.9 Polyneuropathy, unspecified; G89.29 Other chronic pain; M15.0 Primary generalized (osteo)arthritis; E78.2 Mixed hyperlipidemia; F32.9 Major depressive disorder, single episode, unspecified; I10 Essential (primary) hypertension; J44.9 Chronic obstructive pulmonary disease, unspecified; Z79.899 Other long term (current) drug therapy; Z79.891 Long term (current) use of opiate analgesic; J30.9 Allergic rhinitis, unspecified; Z88.1 Allergy status to other antibiotic agents; Z88.8 Allergy status to other drugs, medicaments and biological substances

== ENCOUNTER → 2017-02-25 | Outpatient (REF) | payer OTHER, BC | LOC: M SFHCPLAZ 14:01 | DX: Z11.59 Encounter for screening for other viral diseases (principal) ==

== ENCOUNTER → 2017-08-24 | Outpatient (CLI) | payer OTHER, BC ==
[2017-08-24 12:40] LABS: BASO % 0.7 % (0.0-1.0); EOS # 0.2 10^3/uL (0.0-0.50); EOS % 2.7 % (0.0-3.0); HEMOGLOBIN 16.2 g/dl (14.0-18.0); IMMATURE GRANULOCYTE % 0.4 % (0-0); LYMPH # 1.2 10^3/uL (1.5-4.5); LYMPH % 22.3 % (24.0-44.0); MEAN CORPUSCULAR HEMOGLOBIN 33.8 pg (27.0-33.0); MEAN CORPUSCULAR VOLUME 93.8 fl (80.0-96.0); MONO # 0.6 10^3/uL (0.0-0.8); MONO % 10.7 % (0.0-5.0); NEUTROPHILS # 3.5 10^3/uL (1.8-7.7); NEUTROPHILS % 63.2 % (36.0-66.0); PLATELET COUNT, AUTOMATED 165 10^3/uL (150-450); RED CELL DISTRIBUTION WIDTH 12.1 % (11.5-14.5); WHITE BLOOD COUNT 5.5 10^3/uL (4.0-10.0)
[2017-08-24 13:02] LABS: ESTIMATED AVERAGE GLUCOSE 117 MG/DL (60-110); HEMOGLOBIN A1c 5.7 %
[2017-08-24 13:16] LABS: ALBUMIN 4.4 GM/DL (3.2-5.2); ALBUMIN/GLOBULIN RATIO 1.69 (1.00-1.93); ALKALINE PHOSPHATASE 149 U/L (45-117); ALT/SGPT 143 U/L (12-78); ANION GAP 8 MEQ/L (8-16); AST/SGOT 82 U/L (7-37); BILIRUBIN,TOTAL 0.8 MG/DL (0.2-1.0); BLOOD UREA NITROGEN 12 MG/DL (7-18); CALCIUM LEVEL 9.7 MG/DL (8.5-10.1); CARBON DIOXIDE LEVEL 27 MEQ/L (21-32); CHLORIDE LEVEL 102 MEQ/L (98-107); CHOLESTEROL LEVEL 170 MG/DL (<200); CREATININE FOR GFR 0.76 MG/DL (0.70-1.30); GLOMERULAR FILTRATION RATE > 60.0 (>56); GLUCOSE, FASTING 135 MG/DL (70-100); HDL CHOLESTEROL 40 MG/DL (>40); LDL CHOLESTEROL 110.8 MG/DL (<100); NON-HDL-C 130 MG/DL; POTASSIUM SERUM 3.6 MEQ/L (3.5-5.1); SODIUM LEVEL 137 MEQ/L (136-145); THYROID STIMULATING HORMONE 0.723 uIU/ML (0.358-3.740); TRIGLYCERIDES LEVEL 96 MG/DL (<150)
== END ==
LOC: M LAB 11:27
DX: Z00.00 Encounter for general adult medical examination without abnormal findings (principal)
CPT/HCPCS: 84443

== ENCOUNTER → 2018-02-02 | Outpatient (REF) | payer OTHER, BC ==
[2018-02-02 13:53] LABS: BASO % 0.7 % (0.0-1.0); EOS # 0.2 10^3/uL (0.0-0.50); EOS % 3.6 % (0.0-3.0); HEMATOCRIT 47.4 % (42.0-52.0); HEMOGLOBIN 16.5 g/dl (13.5-17.5); IMMATURE GRANULOCYTE % 0.3 % (0-3.0); LYMPH # 1.5 10^3/uL (1.5-4.5); LYMPH % 24.7 % (24.0-44.0); MEAN CORPUSCULAR HEMOGLOBIN 34.3 pg (27.0-33.0); MEAN CORPUSCULAR HGB CONC 34.8 g/dl (32.0-36.5); MEAN CORPUSCULAR VOLUME 98.5 fl (80.0-96.0); MONO # 0.7 10^3/uL (0.0-0.8); MONO % 11.9 % (0.0-5.0); NEUTROPHILS # 3.5 10^3/uL (1.8-7.7); NEUTROPHILS % 58.8 % (36.0-66.0); PLATELET COUNT, AUTOMATED 177 10^3/uL (150-450); RED BLOOD COUNT 4.81 10^6/uL (4.30-6.10); RED CELL DISTRIBUTION WIDTH 12.3 % (11.5-14.5); WHITE BLOOD COUNT 5.9 10^3/uL (4.0-10.0)
[2018-02-02 14:15] LABS: ALBUMIN 4.2 GM/DL (3.2-5.2); ALKALINE PHOSPHATASE 176 U/L (45-117); ALT/SGPT 111 U/L (12-78); ANION GAP 8 MEQ/L (8-16); AST/SGOT 77 U/L (7-37); BILIRUBIN,TOTAL 0.9 MG/DL (0.2-1.0); BLOOD UREA NITROGEN 16 MG/DL (7-18); CALCIUM LEVEL 10.3 MG/DL (8.5-10.1); CARBON DIOXIDE LEVEL 28 MEQ/L (21-32); CHLORIDE LEVEL 103 MEQ/L (98-107); CREATININE FOR GFR 0.79 MG/DL (0.70-1.30); GLOMERULAR FILTRATION RATE > 60.0 (>56); GLUCOSE, FASTING 113 MG/DL (70-100); POTASSIUM SERUM 3.8 MEQ/L (3.5-5.1); SODIUM LEVEL 139 MEQ/L (136-145); TOTAL PROTEIN 7.2 GM/DL (6.4-8.2)
[2018-02-02 15:06] LABS: FOLATE 8.6 NG/ML; VITAMIN B12 LEVEL 374 PG/ML
== END ==
LOC: M LABNEURO 11:16
DX: G35 Multiple sclerosis (principal)

== ENCOUNTER → 2018-06-23 | Outpatient (REF) | payer OTHER, BC ==
[2018-06-23 16:18] LABS: ALBUMIN 4.3 GM/DL (3.2-5.2); ALBUMIN/GLOBULIN RATIO 1.65 (1.00-1.93); ALKALINE PHOSPHATASE 158 U/L (45-117); ALT/SGPT 114 U/L (12-78); ANION GAP 6 MEQ/L (8-16); AST/SGOT 54 U/L (7-37); BILIRUBIN,DIRECT 0.2 MG/DL (0.0-0.2); BILIRUBIN,TOTAL 0.6 MG/DL (0.2-1.0); BLOOD UREA NITROGEN 5 MG/DL (7-18); CALCIUM LEVEL 9.7 MG/DL (8.5-10.1); CARBON DIOXIDE LEVEL 27 MEQ/L (21-32); CHLORIDE LEVEL 106 MEQ/L (98-107); CREATININE FOR GFR 0.72 MG/DL (0.70-1.30); FERRITIN 621 NG/ML (26-388); GLOMERULAR FILTRATION RATE > 60.0 (>56); GLUCOSE, FASTING 101 MG/DL (70-100); IRON (FE) 155 UG/DL (65-175); PHOSPHORUS LEVEL 1.8 MG/DL (2.5-4.9); POTASSIUM SERUM 3.9 MEQ/L (3.5-5.1); SODIUM LEVEL 139 MEQ/L (136-145); TOTAL IRON BINDING CAPACITY 352 UG/DL (250-450); TOTAL PROTEIN 6.9 GM/DL (6.4-8.2)
[2018-06-23 16:35] LABS: PTH INTACT 127.3 PG/ML (18.5-88.0)
[2018-06-24 11:16] LABS: HEPATITIS B SURFACE ANTIGEN NEGATIVE (NEGATIVE)
[2018-06-24 11:42] LABS: HEPATITIS C VIRUS ABY INDEX 0.1 INDEX (<0.8)
[2018-06-24 11:43] LABS: HEPATITIS B CORE ANTIBODY IGM NEGATIVE (NEGATIVE)
[2018-06-24 11:46] LABS: HEPATITIS A ANTIBODY IGM NEGATIVE (NEGATIVE)
[2018-06-28 00:06] LABS: ANTI-SMOOTH MUSCLE ANTIBODY 3 Units (0-19)
[2018-06-28 00:06] LABS: ANTI-MITOCHONDRIAL ANTIBODY 1.6 Units (0.0-20.0); ANTINUCLEAR ANTIBODIES DIRECT Negative (Negative); LIVER-KIDNEY MICROSOMAL ABY 1.1 Units (0.0-20.0); TRANSFERRIN 286 mg/dL (200-370)
== END ==
LOC: M SFHCPLAZ 14:16
DX: R94.5 Abnormal results of liver function studies (principal)
CPT/HCPCS: 80069

== ENCOUNTER → 2018-06-30 | Outpatient (CLI) | payer OTHER, BC | LOC: M WHC 08:16 | DX: N28.1 Cyst of kidney, acquired (principal); E34.9 Endocrine disorder, unspecified; R94.5 Abnormal results of liver function studies | CPT/HCPCS: 76705 ==

== ENCOUNTER → 2018-06-30 | Outpatient (REF) | payer OTHER, BC ==
[2018-07-06 14:14] LABS: AFP TUMOR L3% 6.6 % (0.0-9.9); AFP TUMOR TOTAL 4.8 ng/mL (0.0-8.0)
== END ==
LOC: M SFHCPLAZ 12:33
DX: R94.5 Abnormal results of liver function studies (principal); E34.9 Endocrine disorder, unspecified
CPT/HCPCS: 82330

== ENCOUNTER → 2018-06-30 | Outpatient (REF) | payer OTHER, BC ==
[~2018-06-30] MED LIST changes: +LORA-243; -LORA10TA2; +TIZA2CAP PO; -TIZA2CAP3 PO; +TRAZ-160; -TRAZ50TA11
[2018-06-30 14:14] LABS: ALT/SGPT 114 U/L (12-78); BILIRUBIN,DIRECT 0.2 MG/DL (0.0-0.2); BILIRUBIN,TOTAL 0.8 MG/DL (0.2-1.0); BLOOD UREA NITROGEN 6 MG/DL (7-18); CALCIUM LEVEL 9.6 MG/DL (8.5-10.1); CARBON DIOXIDE LEVEL 24 MEQ/L (21-32); CHLORIDE LEVEL 109 MEQ/L (98-107); CREATININE FOR GFR 0.86 MG/DL (0.70-1.30); FERRITIN 684 NG/ML (26-388); GLOMERULAR FILTRATION RATE > 60.0 (>56); GLUCOSE, FASTING 136 MG/DL (70-100); IRON (FE) 137 UG/DL (65-175); PERCENT SATURATION 37.2 % (19.7-50.0); PHOSPHORUS LEVEL 1.3 MG/DL (2.5-4.9); SODIUM LEVEL 140 MEQ/L (136-145); TOTAL IRON BINDING CAPACITY 368 UG/DL (250-450)
[2018-06-30 14:22] LABS: PTH INTACT 150.1 PG/ML (18.5-88.0); TOTAL 25(OH) VITAMIN D 16.2 NG/ML (30.0-100.0)
[2018-07-01 11:41] LABS: HEPATITIS B SURFACE ANTIGEN NEGATIVE (NEGATIVE)
[2018-07-01 12:07] LABS: HEPATITIS C VIRUS ABY INDEX 0.1 INDEX (<0.8)
[2018-07-01 12:08] LABS: HEPATITIS B CORE ANTIBODY IGM NEGATIVE (NEGATIVE)
[2018-07-01 12:10] LABS: HEPATITIS A ANTIBODY IGM NEGATIVE (NEGATIVE)
[2018-07-02 00:07] LABS: ANTI-MITOCHONDRIAL ANTIBODY 1.6 Units (0.0-20.0); ANTI-SMOOTH MUSCLE ANTIBODY 3 Units (0-19); ANTINUCLEAR ANTIBODIES DIRECT Negative (Negative); TRANSFERRIN 290 mg/dL (200-370)
== END ==
LOC: M SFHCPLAZ 09:25
DX: R94.5 Abnormal results of liver function studies (principal); E34.9 Endocrine disorder, unspecified

== ENCOUNTER → 2018-07-08 | Outpatient (CLI) | payer OTHER, BC ==
[2018-07-08 16:20] LABS: BASO # 0.1 10^3/uL (0.0-0.2); BASO % 0.7 % (0.0-1.0); EOS # 0.2 10^3/uL (0.0-0.50); EOS % 2.3 % (0.0-3.0); HEMATOCRIT 46.1 % (42.0-52.0); HEMOGLOBIN 16.4 g/dl (13.5-17.5); LYMPH # 2.1 10^3/uL (1.5-4.5); LYMPH % 27.7 % (24.0-44.0); MEAN CORPUSCULAR HEMOGLOBIN 34.3 pg (27.0-33.0); MEAN CORPUSCULAR HGB CONC 35.6 g/dl (32.0-36.5); MEAN CORPUSCULAR VOLUME 96.4 fl (80.0-96.0); MONO % 13.9 % (0.0-5.0); NEUTROPHILS # 4.1 10^3/uL (1.8-7.7); NEUTROPHILS % 55.1 % (36.0-66.0); PLATELET COUNT, AUTOMATED 189 10^3/uL (150-450); RED BLOOD COUNT 4.78 10^6/uL (4.30-6.10); WHITE BLOOD COUNT 7.5 10^3/uL (4.0-10.0)
[2018-07-08 16:33] LABS: BLOOD UREA NITROGEN 13 MG/DL (7-18); C REACTIVE PROTEIN QUANTITATIV < 0.30 MG/DL (0.00-0.30); CALCIUM LEVEL 10.7 MG/DL (8.5-10.1); CARBON DIOXIDE LEVEL 29 MEQ/L (21-32); CHLORIDE LEVEL 101 MEQ/L (98-107); CREATININE FOR GFR 0.88 MG/DL (0.70-1.30); GLOMERULAR FILTRATION RATE > 60.0 (>56); GLUCOSE, FASTING 101 MG/DL (70-100); POTASSIUM SERUM 3.5 MEQ/L (3.5-5.1); SODIUM LEVEL 138 MEQ/L (136-145)
[2018-07-08 17:05] LABS: ERYTHROCYTE SEDIMENTATION RATE 7 mm/hr (0-20)
== END ==
LOC: M WUC 13:47
PROVIDERS: ATTEND Student in an Organized Health Care Education/Training Program
DX: R10.84 Generalized abdominal pain (principal)

== ENCOUNTER → 2018-07-31 | Outpatient (REF) | payer OTHER ==
[2018-08-01 11:12] LABS: CALCIUM, 24 HOUR URINE 106.5 MG/24HR (42-353); CALCIUM, URINE 7.1 MG/DL
== END ==
LOC: M SFHCPLAZ 04:30
DX: E83.52 Hypercalcemia (principal)

== ENCOUNTER → 2018-10-19 | Outpatient (CLI) | payer OTHER, BC ==
[~2018-10-19] MED LIST changes: -/BACL20TA OR; -/DULO30CA OR; -/ROPI1TA OR; +BACL1TAB9 OR; +CYMB1CAP5 OR; +REQU1TAB16 OR
--- NOTE | 2018-10-19 11:07 | REP ---
A KUB one-view History: Constipation Comparison: 12/25/2014 A small amount of air is present in small and large intestine. There are no air-fluid levels or dilated loops of intestine. There is no pneumoperitoneum. A moderate amount of stool is present in the colon. Impression: There is a moderate amount of stool in the colon. Electronically Signed by Alex Johnson MD 10/19/2018 10:58 A
== END ==
LOC: M RAD 09:37
PROVIDERS: ATTEND Student in an Organized Health Care Education/Training Program
DX: K59.03 Drug induced constipation (principal)

== ENCOUNTER 2018-11-02 12:53 | Emergency (ER) | payer OTHER, BC ==
[~2018-11-02] VITALS: Ht 180.3 cm; Wt 122.7 kg
[2018-11-02] MEDS ORDERED: LYRI200C (14:14)
--- NOTE | 2018-11-02 14:17 | REP ---
CT Head without contrast HISTORY: Memory difficulty COMPARISON: None An area of decreased attenuation is present in the right basal ganglia. This represents an old lacunar infarction. Areas of decreased attenuation are present in the periventricular and subcortical white matter. This represents small-vessel ischemic disease. There is no intraparenchymal hemorrhage, acute infarct, mass or midline shift. The ventricular system and cortical sulci are dilated consistent with minimal volume loss. There is no extra cerebral collection. There is no fracture. The visualized sinuses are clear. IMPRESSION: 1. Old right basal ganglia lacunar infarction. 2. Small vessel ischemic disease. 3. Minimal volume loss. Electronically Signed by Alex Johnson MD 11/02/2018 02:08 P
[2018-11-02 14:34] VITALS: BP 141/75
== END 2018-11-02 14:42 | disposition home or self-care (01) ==
LOC: M ED 12:53
DX: R41.3 Other amnesia (principal); I10 Essential (primary) hypertension; M54.9 Dorsalgia, unspecified; G35 Multiple sclerosis; Z79.899 Other long term (current) drug therapy; Z88.0 Allergy status to penicillin; Z88.1 Allergy status to other antibiotic agents; Z88.8 Allergy status to other drugs, medicaments and biological substances

== ENCOUNTER 2018-11-04 13:54 | Outpatient (CLI) | payer OTHER, BC ==
[~2018-11-04] VITALS: Ht 182.9 cm; Wt 109.0 kg
[2018-11-04 14:00] VITALS: BP 145/78
[2018-11-04] MEDS ORDERED: methylPREDNISolone 1,000 MG, VIAL MATE ADAPTER 1 EACH in D5W 250 ML IV ONE (14:00)
[2018-11-04 15:44] VITALS: BP 133/73
== END 2018-11-04 15:45 | disposition home or self-care (01) ==
LOC: M INFU 13:54
PROVIDERS: ATTEND Psychiatry & Neurology Neurology
DX: G35 Multiple sclerosis (principal)
CPT/HCPCS: 96365; J2930

== ENCOUNTER → 2018-11-04 | Outpatient (REF) | payer OTHER, BC ==
[~2018-11-04] MED LIST changes: +LYRI200C
[2018-11-04 18:30] LABS: BASO # 0.1 10^3/uL (0.0-0.2); BASO % 0.5 % (0.0-1.0); EOS # 0.1 10^3/uL (0.0-0.50); EOS % 1.5 % (0.0-3.0); HEMATOCRIT 50.3 % (42.0-52.0); HEMOGLOBIN 17.6 g/dl (13.5-17.5); LYMPH # 1.7 10^3/uL (1.5-4.5); LYMPH % 18.3 % (24.0-44.0); MEAN CORPUSCULAR HEMOGLOBIN 33.3 pg (27.0-33.0); MEAN CORPUSCULAR VOLUME 95.1 fl (80.0-96.0); MONO # 1.1 10^3/uL (0.0-0.8); MONO % 11.7 % (0.0-5.0); NEUTROPHILS # 6.3 10^3/uL (1.8-7.7); NEUTROPHILS % 67.5 % (36.0-66.0); PLATELET COUNT, AUTOMATED 213 10^3/uL (150-450); RED BLOOD COUNT 5.29 10^6/uL (4.30-6.10); WHITE BLOOD COUNT 9.3 10^3/uL (4.0-10.0)
[2018-11-04 19:13] LABS: ALBUMIN 4.6 GM/DL (3.2-5.2); ALT/SGPT 79 U/L (12-78); BLOOD UREA NITROGEN 15 MG/DL (7-18); CALCIUM LEVEL 11.2 MG/DL (8.5-10.1); CARBON DIOXIDE LEVEL 32 MEQ/L (21-32); CHLORIDE LEVEL 99 MEQ/L (98-107); CREATININE FOR GFR 0.86 MG/DL (0.70-1.30); FOLATE 8.8 NG/ML (>5.4); GLOMERULAR FILTRATION RATE > 60.0 (>56); GLUCOSE, FASTING 132 MG/DL (70-100); POTASSIUM SERUM 2.9 MEQ/L (3.5-5.1); RHEUMATOID FACTOR QUANT < 10.0 IU/ML (<15.0); SODIUM LEVEL 140 MEQ/L (136-145); TOTAL PROTEIN 7.5 GM/DL (6.4-8.2); VITAMIN B12 LEVEL 406 PG/ML (247-911)
[2018-11-05 10:53] LABS: ERYTHROCYTE SEDIMENTATION RATE 2 mm/hr (0-20)
[2018-11-07 14:32] LABS: ANTINUCLEAR ANTIBODIES DIRECT Negative (Negative)
[2018-11-08 10:41] LABS: DRVV SCREEN 44.6 SEC
[2018-11-08 10:48] LABS: PTT LUPUS TYPE ANTICOAG SCREEN 1.1 (0-1.2)
== END ==
LOC: M LABNEURO 11:32
PROVIDERS: ATTEND Psychiatry & Neurology Neurology
DX: G35 Multiple sclerosis (principal)

== ENCOUNTER 2019-02-12 17:39 | Emergency (ER) | payer OTHER, BC ==
[~2019-02-12] VITALS: Ht 182.9 cm; Wt 118.2 kg
[~2019-02-12 17:39] MED LIST changes: -DULO1CAP2; +DULO1CAP5; -OXYB10TA; +OXYB10TA2; -TRAZ-160; +TRAZ-252
--- NOTE | 2019-02-12 20:50 | REPVR ---
EXAM: US Duplex Right Lower Extremity Veins, Limited EXAM DATE/TIME: 02/12/2019 8:17 PM CLINICAL HISTORY: 58 years old, male; Swelling (edema) of limb; Lower extremity, right; Additional info: Pain/swelling TECHNIQUE: Imaging protocol: Real-time Duplex ultrasound of the Right Lower Extremity with 2-D sullivan scale, color Doppler flow and spectral waveform analysis with image documentation. Limited exam was focused on the right lower extremity veins. COMPARISON: No relevant prior studies available. FINDINGS: Right deep veins: Unremarkable. The common femoral, femoral, proximal profunda femoral and popliteal veins are patent without thrombus. Normal Doppler waveforms. Normal compressibility and/or augmentation response. Right superficial veins: Unremarkable. Saphenofemoral junction is patent without thrombus. Soft tissues: Unremarkable. IMPRESSION: No sonographic evidence of deep vein thrombosis. Electronically signed by: Jose Torres On 02/12/2019 20:50:00 PM
[2019-02-12] MEDS ORDERED: KETOROLAC TROMETHAMINE 10 MG TAB PO ONE (21:30)
[2019-02-12 21:36] VITALS: BP 145/79
== END 2019-02-12 21:38 | disposition home or self-care (01) ==
LOC: M ED 17:39
DX: R60.0 Localized edema (principal); I10 Essential (primary) hypertension; G35 Multiple sclerosis; M54.9 Dorsalgia, unspecified; Z77.098 Contact with and (suspected) exposure to other hazardous, chiefly nonmedicinal, chemicals; Z79.899 Other long term (current) drug therapy; Z88.0 Allergy status to penicillin; Z88.1 Allergy status to other antibiotic agents

== ENCOUNTER → 2019-03-07 | Outpatient (CLI) | payer OTHER, BC ==
--- NOTE | 2019-03-07 15:21 | REP ---
BILATERAL LOWER EXTREMITY DUPLEX DOPPLER ARTERIAL ULTRASOUND: Real-time ultrasound evaluation and duplex Doppler interrogation of bilateral lower extremity arterial systems is performed. GAUTAM right and left is 1.3. Minor scattered plaquing is seen diffusely bilaterally. There is no evidence of hemodynamically significant stenosis of either bilateral lower extremity arterial system. Triphasic and biphasic waveforms are seen diffusely bilaterally with normal flow velocities. Right PSV Left PSV Common femoral artery 138.1 cm/s 135.2 cm/s Profunda 86.0 cm/s 62.5 cm/s Proximal SFA 100.1 cm/s 117.6 cm/s Mid SFA 97.8 cm/s 95.8 cm/s Distal SFA 97.2 cm/s 101.5 cm/s Popliteal 46.7 cm/s 57.2 cm/s Proximal ALEXIA 58.3 cm/s 50.3 cm/s Tibial peroneal trunk 72.7 cm/s 67.8 cm/s Proximal TOOL MACHINE SET UP OPERATOR 33.1 cm/s 57.8 cm/s Distal TOOL MACHINE SET UP OPERATOR 60.7 cm/s 83.1 cm/s Distal ALEXIA 45.4 cm/s 61.5 cm/s IMPRESSION: No significant stenosis of bilateral lower extremity arterial systems. Electronically Signed by Ross Lee MD 03/08/2019 01:01 P
== END ==
LOC: M RAD 13:09
PROVIDERS: ATTEND Internal Medicine Pulmonary Disease
DX: R22.41 Localized swelling, mass and lump, right lower limb (principal)

== ENCOUNTER 2019-03-29 11:22 | Outpatient (RCR) | payer OTHER, BC | END 2019-04-17 | LOC: M PT 11:22 | DX: Z51.89 Encounter for other specified aftercare (principal); G35 Multiple sclerosis; M54.5 Low back pain ==

== ENCOUNTER 2019-05-05 14:37 | Outpatient (RCR) | payer OTHER, BC ==
[~2019-05-05 14:37] MED LIST changes: +ZOLM5TAB14; -ZOLM5TAB2
== END 2019-05-18 | disposition home or self-care (01) ==
LOC: M PT 14:37
DX: G35 Multiple sclerosis (principal); M54.5 Low back pain

== ENCOUNTER 2019-05-24 11:00 | Outpatient (RCR) | payer OTHER, BC | END 2019-06-17 | LOC: M PT 11:00 | DX: G35 Multiple sclerosis (principal); M54.5 Low back pain ==

== ENCOUNTER → 2019-06-08 | Outpatient (REF) | payer OTHER, BC ==
[2019-06-08 17:27] LABS: ALBUMIN 4.1 GM/DL (3.2-5.2); ALT/SGPT 60 U/L (12-78); BILIRUBIN,TOTAL 0.6 MG/DL (0.2-1.0); BLOOD UREA NITROGEN 6 MG/DL (7-18); CALCIUM LEVEL 9.8 MG/DL (8.5-10.1); CARBON DIOXIDE LEVEL 30 MEQ/L (21-32); CHLORIDE LEVEL 105 MEQ/L (98-107); GLOMERULAR FILTRATION RATE > 60.0 (>56); GLUCOSE, FASTING 104 MG/DL (70-100); PHOSPHORUS LEVEL 2.1 MG/DL (2.5-4.9); POTASSIUM SERUM 3.9 MEQ/L (3.5-5.1); SODIUM LEVEL 139 MEQ/L (136-145); TOTAL PROTEIN 6.6 GM/DL (6.4-8.2)
[2019-06-08 17:34] LABS: PTH INTACT 204.7 PG/ML (18.5-88.0)
[2019-06-13 11:55] LABS: ALBUMIN 4.46 GM/DL (3.29-5.55); ALBUMIN % 67.6 % (55.8-66.1); ALPHA-1-GLOBULIN % 4.4 % (2.9-4.9); ALPHA-1-GLOBULINS 0.29 GM/DL (0.17-0.41); ALPHA-2-GLOBULINS 0.61 GM/DL (0.42-0.99); ALPHA-2-GLOBULINS % 9.2 % (7.1-11.8); BETA-1-GLOBULINS 0.38 GM/DL (0.28-0.60); BETA-1-GLOBULINS % 5.7 % (4.7-7.2); BETA-2-GLOBULINS % 4.5 % (3.2-6.5); GAMMA GLOBULIN % 8.6 % (11.1-18.8); GAMMA GLOBULINS 0.57 GM/DL (0.65-1.58)
== END ==
LOC: M SFHCPLAZ 14:57
DX: Z86.39 Personal history of other endocrine, nutritional and metabolic disease (principal); K75.81 Nonalcoholic steatohepatitis (NASH)

== ENCOUNTER → 2019-06-10 | Outpatient (CLI) | payer BC, OTHER ==
--- NOTE | 2019-06-10 14:57 | REP ---
HISTORY: Chronic pain syndrome. FINDINGS: The hip joint space is symmetric and relatively well maintained. T here is no acute or destructive osseous lesion. Electronically Signed by Yovany Mondragon DO 06/10/2019 03:54 P
--- NOTE | 2019-06-10 14:59 | REP ---
HISTORY: Chronic pain syndrome. AP and lateral views were obtained. COMPARISON: None. There is slight patellar marginal osteophytosis. There is no acute fracture or destructive osseous lesion on this limited exam. IMPRESSION: Slight chronic changes. Electronically Signed by Yovany Mondragon DO 06/10/2019 03:54 P
--- NOTE | 2019-06-11 07:13 | REP ---
REASON: Chronic pain syndrome. Comparison 04/19/2009 Minimal partial syndesmophyte formation has developed at every level bilaterally. The pedicles are intact bilaterally. Vertebral body height and alignment is unchanged. There is anterior lipping at every level, heaviest at L1-2 and L2-3 and increased significantly from the prior exam. There is no change in the appearance of the facet joints. There is no spondylolysis or spondylolisthesis. IMPRESSION: Chronic changes as described above. Electronically Signed by Yovany Mondragon DO 06/11/2019 09:22 A
== END ==
LOC: M RAD 13:22
DX: G89.4 Chronic pain syndrome (principal); M25.78 Osteophyte, vertebrae; M25.761 Osteophyte, right knee

== ENCOUNTER 2019-06-19 18:01 | Emergency (ER) | payer BC, OTHER ==
[~2019-06-19] VITALS: Ht 182.9 cm; Wt 122.7 kg
[2019-06-19] MEDS ORDERED: TRAZ-252 PO (18:35)
[2019-06-19] MEDS ORDERED: LIDOCAINE 5% (LIDODERM) PATCH TD ONE (20:00)
[2019-06-19] MEDS ORDERED: PRED20TA PO (20:13)
[2019-06-19] MEDS ORDERED: predniSONE 20 MG TAB PO ONE (20:15)
[2019-06-19] MEDS ORDERED: KETOROLAC 60 MG/2 ML VIAL (J1885) IM ONE (20:15)
[2019-06-19 20:20] VITALS: BP 147/81
[2019-06-19] MEDS ORDERED: **NOTE PATIENT COMMENT** MISC XX SCH (21:00)
== END 2019-06-19 20:26 | disposition home or self-care (01) ==
LOC: M ED 18:01
DX: G89.29 Other chronic pain (principal); M54.5 Low back pain; G35 Multiple sclerosis; R26.81 Unsteadiness on feet; W10.9XXA Fall (on) (from) unspecified stairs and steps, initial encounter; Y92.099 Unspecified place in other non-institutional residence as the place of occurrence of the external cause; Y93.9 Activity, unspecified; Y99.9 Unspecified external cause status; I10 Essential (primary) hypertension; Z79.899 Other long term (current) drug therapy; Z88.0 Allergy status to penicillin; Z88.1 Allergy status to other antibiotic agents
CPT/HCPCS: 96372; 99283; J1885

== ENCOUNTER 2019-06-20 15:09 | Emergency (ER) | payer BC, OTHER ==
[~2019-06-20] VITALS: Ht 182.9 cm; Wt 122.7 kg
[2019-06-20 15:09] VITALS: BP 133/66
[~2019-06-20 15:09] MED LIST changes: +PRED20TA PO; +TRAZ-252 PO
== END 2019-06-20 17:46 | disposition left against medical advice (07) ==
LOC: M ED 15:09
DX: Z53.21 Procedure and treatment not carried out due to patient leaving prior to being seen by health care provider (principal)

== ENCOUNTER → 2019-12-27 | Outpatient (CLI) | payer BC, OTHER ==
[~2019-12-27] MED LIST changes: -OXYB10TA2; +OXYB10TA23; -ROPI1TAB; +ROPI1TAB3
--- NOTE | 2019-12-28 08:45 | REP ---
Clinical: Neck mass suggesting lipoma. Technique: Real time sullivan scale and color evaluation using linear and curved array transducers. Findings: Directed ultrasound examination demonstrates a nonvascular hypoechoic ovoid well-circumscribed lesion measuring 5.9 x 5.4 x 1.9 cm which is compatible with lipoma. No further abnormality or fluid collection identified. Impression: Findings compatible with the given history of lipoma.
== END ==
LOC: M PLAIMG 10:47
PROVIDERS: ATTEND Physician Assistant
DX: D17.0 Benign lipomatous neoplasm of skin and subcutaneous tissue of head, face and neck (principal)

== ENCOUNTER 2020-01-12 11:39 | Outpatient (RCR) | payer BC, OTHER | END 2020-01-16 | disposition home or self-care (01) | LOC: M PT 11:39 | PROVIDERS: ATTEND Internal Medicine Pulmonary Disease | DX: G35 Multiple sclerosis (principal) ==

== ENCOUNTER 2020-01-28 09:40 | Emergency (ER) | payer BC, OTHER ==
[~2020-01-28] VITALS: Ht 182.9 cm; Wt 109.1 kg
[2020-01-28 11:58] LABS: HEMOGLOBIN 14.8 g/dl (13.5-17.5); MEAN CORPUSCULAR HEMOGLOBIN 32.7 pg (27.0-33.0); MEAN CORPUSCULAR HGB CONC 33.6 g/dl (32.0-36.5); MEAN CORPUSCULAR VOLUME 97.1 fl (80.0-96.0); PLATELET COUNT, AUTOMATED 156 10^3/uL (150-450); RED BLOOD COUNT 4.53 10^6/uL (4.30-6.10); WHITE BLOOD COUNT 6.1 10^3/uL (4.0-10.0)
[2020-01-28 12:11] LABS: BLOOD UREA NITROGEN 9 MG/DL (7-18); CALCIUM LEVEL 9.8 MG/DL (8.5-10.1); CARBON DIOXIDE LEVEL 26 MEQ/L (21-32); CHLORIDE LEVEL 109 MEQ/L (98-107); CREATININE FOR GFR 0.78 MG/DL (0.70-1.30); GLOMERULAR FILTRATION RATE > 60.0 (>56); GLUCOSE, FASTING 95 MG/DL (70-100); NT-PRO BNP 17 PG/ML (<125); POTASSIUM SERUM 4.1 MEQ/L (3.5-5.1); SODIUM LEVEL 140 MEQ/L (136-145)
--- NOTE | 2020-01-28 13:03 | REP ---
RIGHT LOWER EXTREMITY DOPPLER VENOUS ULTRASOUND: 01/28/2020. Clinical history: Lower extremity swelling, evaluate for DVT. Comparison: None. Technique: The deep venous system of the right lower extremity is evaluated with sullivan scale imaging, compression ultrasound, color imaging and duplex Doppler interrogation. Examination from the groin through the popliteal fossa into the proximal calf. Findings: There is full compressibility from the common femoral vein in the inguinal region through the popliteal vein. Color imaging confirms patency throughout the course of the deep venous system. There is respiratory variation and augmented flow at all levels. Impression: 1. No Doppler venous ultrasound evidence of DVT in the right lower extremity. Electronically Signed by Ambrosio Nuñez MD 01/28/2020 12:55 P
[2020-01-28 13:08] VITALS: BP 138/72
== END 2020-01-28 13:09 | disposition home or self-care (01) ==
LOC: M ED 09:40
DX: R22.41 Localized swelling, mass and lump, right lower limb (principal); I10 Essential (primary) hypertension; E78.5 Hyperlipidemia, unspecified; Z79.899 Other long term (current) drug therapy; Z88.0 Allergy status to penicillin; Z88.1 Allergy status to other antibiotic agents

== ENCOUNTER → 2020-02-03 | Outpatient (CLI) | payer OTHER, BC ==
[2020-02-03 11:01] LABS: ALBUMIN 4.1 GM/DL (3.2-5.2); ALT/SGPT 39 U/L (12-78); BILIRUBIN,TOTAL 0.6 MG/DL (0.2-1.0); BLOOD UREA NITROGEN 9 MG/DL (7-18); CALCIUM LEVEL 10.1 MG/DL (8.5-10.1); CARBON DIOXIDE LEVEL 27 MEQ/L (21-32); CHLORIDE LEVEL 110 MEQ/L (98-107); CHOLESTEROL LEVEL 142 MG/DL (<200); CHOLESTEROL RISK RATIO 3.641 (<5); CREATININE FOR GFR 0.82 MG/DL (0.70-1.30); GLOMERULAR FILTRATION RATE > 60.0 (>56); GLUCOSE, FASTING 109 MG/DL (70-100); HDL CHOLESTEROL 39 MG/DL (>40); LDL CHOLESTEROL 85 MG/DL (<100); NON-HDL-C 103 MG/DL; POTASSIUM SERUM 4.4 MEQ/L (3.5-5.1); SODIUM LEVEL 141 MEQ/L (136-145); TOTAL PROTEIN 6.7 GM/DL (6.4-8.2); TRIGLYCERIDES LEVEL 89 MG/DL (<150)
== END ==
LOC: M LAB 09:57
DX: K75.81 Nonalcoholic steatohepatitis (NASH) (principal); E78.5 Hyperlipidemia, unspecified

== ENCOUNTER → 2020-03-08 | Outpatient (REF) | payer OTHER, BC | LOC: M LAB REF 14:08 | DX: Z79.899 Other long term (current) drug therapy (principal) ==

== ENCOUNTER → 2020-03-28 | Outpatient (CLI) | payer OTHER, BC ==
[~2020-03-28] MED LIST changes: +ISOVUE-370 76% 100ML VIAL As Ordered ONE
--- NOTE | 2020-03-28 10:01 | REPVR ---
PROCEDURE INFORMATION: Exam: CT Neck With Contrast Exam date and time: 03/28/2020 9:16 AM Age: 60 years old Clinical indication: Mass, lump, or swelling in neck; Additional info: Juan of uncertain behavior of tissue neck TECHNIQUE: Imaging protocol: Computed tomography images of the neck with intravenous contrast. Radiation optimization: All CT scans at this facility use at least one of these dose optimization techniques: automated exposure control; mA and/or kV adjustment per patient size (includes targeted exams where dose is matched to clinical indication); or iterative reconstruction. Contrast material: ISOVUE 370; Contrast volume: 75 ml; Contrast route: INTRAVENOUS (IV); COMPARISON: US SOFT TISSUE HEAD AND NECK 12/27/2019 11:29 AM FINDINGS: Nasopharynx: Unremarkable. Oropharynx: Unremarkable. No significant tonsillar enlargement. Hypopharynx: Unremarkable. Larynx: Unremarkable. Normal epiglottis. Retropharyngeal space: Unremarkable. Submandibular/Parotid glands: Normal. Glands are normal in size. Thyroid: Normal. No enlarged or calcified nodules. Lymph nodes: Two small lymph nodes are present just caudal to the left neck mass measuring 3.3 mm and 3.8 mm short axis. Trachea: Visualized trachea is unremarkable. Lungs: Unremarkable as visualized. Bones/joints: Homogeneous fat attenuation lesion in the posterolateral left upper neck (extending to the level of the lower skull base), maximal dimensions of approximately 8.7 x 3.0 x 5.6 cm. The lesion is deep to the superficial fascia, and superficial to the muscular compartment. Soft tissues: See "Bones/joints" finding. IMPRESSION: Left posterolateral neck mass consistent with benign lipoma. Electronically signed by: Harry Alvarez On 03/28/2020 10:01:24 AM
== END ==
LOC: M RAD 08:51
PROVIDERS: ATTEND Surgery
DX: R22.1 Localized swelling, mass and lump, neck (principal)
CPT/HCPCS: 70491; Q9967

== ENCOUNTER → 2020-05-23 | Outpatient (CLI) | payer BC, OTHER ==
[~2020-05-23] MED LIST changes: -ISOVUE-370 76% 100ML VIAL As Ordered ONE
--- NOTE | 2020-05-23 09:13 | REP ---
INDICATION: K75.81 LAL/NONALCOHOLIC STEATOHEPATITIS. COMPARISON: Comparison sonography 06/30/2018.. TECHNIQUE: Right upper quadrant sonography. FINDINGS: Scanning through the right upper quadrant of the abdomen demonstrates a normal sized, thin-walled gallbladder without evidence of stone or polyp. Common bile duct is normal measuring 0.4 cm in greatest diameter. There is evidence of increased echogenicity diffusely in the liver consistent with fatty infiltration. No focal liver lesion is seen. Liver size is normal. No pancreatic abnormality is observed. No right renal abnormality is seen. There is no evidence of ascites. The right kidney measures 12.5 x 6.9 x 6.1 cm. There is a small cyst in the lower pole of the right kidney measuring 3.1 cm in greatest diameter. IMPRESSION: Evidence of fatty infiltration of the liver. Cyst in the lower pole of the right kidney. Otherwise negative.. <Electronically signed by Ruddy Biswas > 05/23/20 [id number]
== END ==
LOC: M WHC 08:13
DX: K75.81 Nonalcoholic steatohepatitis (NASH) (principal)

== ENCOUNTER → 2020-05-29 | Outpatient (REF) | payer BC, OTHER | LOC: M SFHCPLAZ 12:00 | PROVIDERS: ATTEND Family Medicine | DX: R60.0 Localized edema (principal) ==

== ENCOUNTER → 2020-06-11 | Outpatient (REF) | payer BC, OTHER ==
[2020-06-11 17:09] LABS: ALBUMIN 4.4 GM/DL (3.2-5.2); ALT/SGPT 40 U/L (12-78); BILIRUBIN,TOTAL 0.6 MG/DL (0.2-1.0); BLOOD UREA NITROGEN 11 MG/DL (7-18); CALCIUM LEVEL 10.7 MG/DL (8.8-10.2); CARBON DIOXIDE LEVEL 30 MEQ/L (21-32); CHLORIDE LEVEL 108 MEQ/L (98-107); CREATININE FOR GFR 0.84 MG/DL (0.70-1.30); GLOMERULAR FILTRATION RATE > 60.0 (>49); GLUCOSE, FASTING 64 MG/DL (70-100); POTASSIUM SERUM 4.2 MEQ/L (3.5-5.1); SODIUM LEVEL 143 MEQ/L (136-145)
[2020-06-11 17:22] LABS: INR 0.97; PROTHROMBIN TIME 13.1 SECONDS (12.5-14.3)
[2020-06-13 10:59] LABS: APPEARANCE, URINE CLEAR (CLEAR); BACTERIA, URINE AUTO NEGATIVE (NEGATIVE); BILIRUBIN, URINE AUTO NEGATIVE (NEGATIVE); BLOOD, URINE BLOOD NEGATIVE (NEGATIVE); CALCIUM OXALATE CRYSTALS MODERATE; COLOR, URINE YELLOW (YELLOW); GLUCOSE, URINE (UA) AUTO NEGATIVE (NEGATIVE); KETONE, URINE AUTO NEGATIVE (NEGATIVE); LEUKOCYTE ESTERASE, URINE AUTO NEGATIVE (NEGATIVE); MUCUS, URINE SMALL (NEGATIVE); NITRITE, URINE AUTO NEGATIVE (NEGATIVE); PROTEIN, URINE AUTO NEGATIVE (NEGATIVE); RBC, URINE AUTO 0 /HPF (0-3); SPECIFIC GRAVITY URINE AUTO 1.017 (1.002-1.035); SQUAMOUS EPITHELIAL CELL UR AU 0 /HPF (0-6); WBC, URINE AUTO 0 /HPF (0-3)
== END ==
LOC: M SFHCPLAZ 13:48
PROVIDERS: ATTEND Family Medicine
DX: R60.0 Localized edema (principal)

== ENCOUNTER → 2020-10-11 | Outpatient (REF) | payer BC, OTHER ==
[~2020-10-11] MED LIST changes: -BACL1TAB9; +BACL1TAB9 PO; +CYMB1CAP5 PO; +LOVA40TA PO; +NORC1TAB8 PO; +NORT25CA2 PO; -OXYB10TA23; +OXYB10TA23 PO; +PREG50CA PO; -ROPI1TAB3; +ROPI1TAB3 PO; +ZANA2CAP PO
== END ==
LOC: M SFHCWAGY 17:09
PROVIDERS: ATTEND Student in an Organized Health Care Education/Training Program
DX: Z79.899 Other long term (current) drug therapy (principal)

== ENCOUNTER → 2020-10-24 | Outpatient (CLI) | payer BC, OTHER ==
[2020-10-24 13:00] LABS: HEMOGLOBIN A1c 5.3 %
[2020-10-30 04:06] LABS: CANNABINOID, URINE Positive (Cutoff=20); CARBOXY THC (GC/MS) 262 ng/mL (Cutoff=10); CODEINE, URINE Negative (Cutoff=100); CREATININE, URINE 233.1 mg/dL (20.0-300.0); HYDROCODONE CONFIRM, URINE 1323 ng/mL (Cutoff=100); HYDROCODONE, URINE Positive (.); HYDROMORPHONE CONFIRM, URINE 131 ng/mL (Cutoff=100); HYDROMORPHONE, URINE Positive (.); MORPHINE, URINE Negative (Cutoff=100); OPIATES, URINE Positive ng/mL (Cutoff=300)
== END ==
LOC: M LAB 11:03
PROVIDERS: ATTEND Family Medicine
DX: Z51.81 Encounter for therapeutic drug level monitoring (principal); Z79.899 Other long term (current) drug therapy; K75.81 Nonalcoholic steatohepatitis (NASH)

== ENCOUNTER → 2020-11-01 | Outpatient (CLI) | payer BC, OTHER ==
--- NOTE | 2020-11-01 17:49 | REP ---
INDICATION: SWELLING OF RT FOOT. COMPARISON: None. TECHNIQUE: Right lower extremity duplex venous ultrasound. FINDINGS: The deep veins are anechoic and fully compressible from the groin to the popliteal fossa in the right lower extremity. Color flow imaging is homogeneous. Spectral Doppler interrogation demonstrates intact respiratory variation in flow and normal manual augmentation of flow. There is no evidence of deep vein thrombosis. IMPRESSION: Negative right lower extremity duplex venous ultrasound. No evidence of deep vein thrombosis. <Electronically signed by Ruddy Biswas > 11/01/20 [id number]
== END ==
LOC: M RAD 16:50
PROVIDERS: ATTEND Student in an Organized Health Care Education/Training Program
DX: M79.89 Other specified soft tissue disorders (principal)

== ENCOUNTER → 2020-11-06 | Outpatient (CLI) | payer BC, OTHER ==
--- NOTE | 2020-11-07 11:30 | ECHO ---
DATE OF PROCEDURE: 11/06/2020 Age: 60 Gender: Male Height: 182 cm Weight: 122 kg REFERRING PHYSICIAN: Nico Jamil DO INDICATION: Peripheral edema. MEASUREMENTS: IVS 1.3 cm LV 5.3 cm LVPW 1.3 cm LA 4.2 cm Aorta 3.7 cm Left atrial volume index 28 Mitral E wave velocity 90 cm/s Mitral A wave 100 cm/s E prime lateral 6.9 cm/s IVC 1.6 cm FINDINGS: This study is of acceptable technical quality, underlying sinus rhythm. Left ventricle is normal size. Mild left ventricular hypertrophy is noted. Overall preserved LV systolic function with estimated LVEF approximately 65%. Right ventricle also appears to have normal size and systolic function. The left atrium is mildly enlarged. The right atrium appears normal. The aortic, mitral, tricuspid, and pulmonic valves all appear normal. No pericardial effusion is noted. Inferior vena cava is of relatively small size and collapses completely with inspiration indicative of normal central venous pressure. The aortic regurgitation is normal. Aortic arch and abdominal aorta were not well seen. Doppler interrogation reveals competent aortic valve. There is trace mitral and tricuspid insufficiency. Calculated pulmonary artery pressure is within normal limits. Pulmonic valve is also functionally competent. Mitral inflow pattern and tissue Doppler imaging of the mitral annulus revealed grade 1 diastolic dysfunction. CONCLUSIONS: 1. Study is of good acceptable technical quality, underlying sinus rhythm. 2. Normal LV size with mild LVH and preserved LV systolic function. Grade 1 diastolic dysfunction. 3. No significant valvular disease. 4. Likely normal central venous pressure and normal pulmonary artery pressure. COMMENTS: Study is suggestive of hypertensive heart disease, but argues again significant peripheral edema as a consequence of congestive heart failure. MTDD
== END ==
LOC: M CARPUL 10:20
PROVIDERS: ATTEND Student in an Organized Health Care Education/Training Program
DX: R60.0 Localized edema (principal)

== ENCOUNTER 2021-01-21 15:53 | Outpatient (CLI) | payer BC, OTHER ==
[~2021-01-21] VITALS: Ht 182.9 cm; Wt 104.0 kg
[2021-01-21] MEDS ORDERED: methylPREDNISolone 1,000 MG, VIAL MATE ADAPTER 1 EACH in NS 250 ML IV ONE (16:05)
[2021-01-21 16:22] VITALS: BP 146/69
[2021-01-21 17:33] VITALS: BP 161/71
== END 2021-01-21 17:25 | disposition home or self-care (01) ==
LOC: M INFU 15:53
PROVIDERS: ATTEND Psychiatry & Neurology Neurology
DX: G35 Multiple sclerosis (principal); Z88.0 Allergy status to penicillin
CPT/HCPCS: 96365; J2930

== ENCOUNTER 2021-01-22 16:51 | Outpatient (CLI) | payer BC, OTHER ==
[~2021-01-22 16:51] MED LIST changes: +methylPREDNISolone 1,000 MG, VIAL MATE ADAPTER 1 EACH in NS 250 ML IV ONE
[2021-01-22 17:00] VITALS: BP 158/75
[2021-01-22 18:30] VITALS: BP 175/82
== END 2021-01-22 18:30 | disposition home or self-care (01) ==
LOC: M INFU 16:51
PROVIDERS: ATTEND Psychiatry & Neurology Neurology
DX: G35 Multiple sclerosis (principal); Z88.0 Allergy status to penicillin
CPT/HCPCS: 96365; J2930

== ENCOUNTER 2021-01-24 17:11 | Outpatient (CLI) | payer BC, OTHER ==
[~2021-01-24] VITALS: Ht 182.9 cm; Wt 104.6 kg
[2021-01-24 16:40] VITALS: BP 166/78
[2021-01-24 17:20] VITALS: BP 143/79
== END 2021-01-24 18:40 | disposition home or self-care (01) ==
LOC: M INFU 17:11
PROVIDERS: ATTEND Psychiatry & Neurology Neurology
DX: G35 Multiple sclerosis (principal); Z88.0 Allergy status to penicillin
CPT/HCPCS: 96365; J2930

== ENCOUNTER 2021-01-25 10:40 | Outpatient (CLI) | payer BC, OTHER ==
[~2021-01-25] VITALS: Ht 182.9 cm; Wt 165.2 kg
[~2021-01-25 10:40] MED LIST changes: -methylPREDNISolone 1,000 MG, VIAL MATE ADAPTER 1 EACH in NS 250 ML IV ONE
[2021-01-25 11:00] VITALS: BP 162/80
[2021-01-25] MEDS ORDERED: methylPREDNISolone 1,000 MG, VIAL MATE ADAPTER 1 EACH in NS 250 ML IV ONE (11:50)
== END 2021-01-25 16:51 | disposition home or self-care (01) ==
LOC: M OPCLI3 10:40 → M MS5PR 10:42 → M OPCLI3 16:51
PROVIDERS: ATTEND Psychiatry & Neurology Neurology
DX: G35 Multiple sclerosis (principal); Z88.0 Allergy status to penicillin
CPT/HCPCS: 96365; J2930

== ENCOUNTER 2021-01-26 11:00 | Outpatient (CLI) | payer BC, OTHER ==
[~2021-01-26] VITALS: Ht 182.9 cm; Wt 165.1 kg
[2021-01-26 11:20] VITALS: BP 182/86
[2021-01-26] MEDS ORDERED: methylPREDNISolone 1,000 MG, VIAL MATE ADAPTER 1 EACH in NS 250 ML IV ONE (12:00)
== END 2021-01-26 13:30 | disposition home or self-care (01) ==
LOC: M OPCLI3 11:00 → M MS5PR 11:04 → M OPCLI3 13:30
PROVIDERS: ATTEND Psychiatry & Neurology Neurology
DX: G35 Multiple sclerosis (principal); Z88.0 Allergy status to penicillin
CPT/HCPCS: 96365; 96366; J2930

== ENCOUNTER → 2021-05-11 | Outpatient (CLI) | payer BC, OTHER ==
[2021-05-11 14:46] LABS: BLOOD UREA NITROGEN 8 MG/DL (7-18); CALCIUM LEVEL 9.6 MG/DL (8.8-10.2); CARBON DIOXIDE LEVEL 26 MEQ/L (21-32); CHLORIDE LEVEL 109 MEQ/L (98-107); CREATININE FOR GFR 0.84 MG/DL (0.70-1.30); GLOMERULAR FILTRATION RATE > 60.0 (>49); GLUCOSE, FASTING 115 MG/DL (70-100); POTASSIUM SERUM 4.9 MEQ/L (3.5-5.1); SODIUM LEVEL 139 MEQ/L (136-145)
== END ==
LOC: M LAB 13:35
PROVIDERS: ATTEND Student in an Organized Health Care Education/Training Program
DX: I10 Essential (primary) hypertension (principal)

== ENCOUNTER → 2021-07-02 | Outpatient (CLI) | payer BC, OTHER | LOC: M LABSMTC 11:44 | PROVIDERS: ATTEND Anesthesiology | DX: Z01.818 Encounter for other preprocedural examination (principal); Z11.52 Encounter for screening for COVID-19 ==

== ENCOUNTER → 2021-07-03 | Outpatient (REF) | payer BC, OTHER | LOC: M SFHCPLAZ 14:36 | PROVIDERS: ATTEND Family Medicine | DX: Z53.9 Procedure and treatment not carried out, unspecified reason (principal) ==

== ENCOUNTER → 2021-07-03 | Outpatient (CLI) | payer BC, OTHER ==
[2021-07-03 18:06] LABS: BASO # 0.1 10^3/uL (0.0-0.2); BASO % 0.7 % (0.0-1.0); EOS # 0.2 10^3/uL (0.0-0.5); EOS % 3.1 % (0.0-3.0); HEMATOCRIT 46.3 % (42.0-52.0); HEMOGLOBIN 15.5 g/dl (13.5-17.5); LYMPH # 1.9 10^3/uL (1.5-5.0); MEAN CORPUSCULAR HGB CONC 33.5 g/dl (32.0-36.5); MEAN CORPUSCULAR VOLUME 95.7 fl (80.0-96.0); MONO # 0.7 10^3/uL (0.0-0.8); MONO % 9.9 % (2.0-8.0); NEUTROPHILS # 4.2 10^3/uL (1.5-8.5); NEUTROPHILS % 58.9 % (36.0-66.0); PLATELET COUNT, AUTOMATED 170 10^3/uL (150-450); RED BLOOD COUNT 4.84 10^6/uL (4.30-6.10); WHITE BLOOD COUNT 7.1 10^3/uL (4.0-10.0)
[2021-07-03 18:27] LABS: ALBUMIN 4.4 GM/DL (3.2-5.2); ALT/SGPT 70 U/L (12-78); BILIRUBIN,TOTAL 0.7 MG/DL (0.2-1.0); BLOOD UREA NITROGEN 6 MG/DL (7-18); CALCIUM LEVEL 10.8 MG/DL (8.8-10.2); CARBON DIOXIDE LEVEL 31 MEQ/L (21-32); CHLORIDE LEVEL 104 MEQ/L (98-107); CREATININE FOR GFR 0.71 MG/DL (0.70-1.30); GLOMERULAR FILTRATION RATE > 60.0 (>49); GLUCOSE, FASTING 105 MG/DL (70-100); POTASSIUM SERUM 4.2 MEQ/L (3.5-5.1); SODIUM LEVEL 141 MEQ/L (136-145); TOTAL PROTEIN 6.9 GM/DL (6.4-8.2)
== END ==
LOC: M PLALAB 14:47
PROVIDERS: ATTEND Student in an Organized Health Care Education/Training Program
DX: K52.9 Noninfective gastroenteritis and colitis, unspecified (principal)

== ENCOUNTER 2021-07-07 08:01 | Day surgery (SDC) | payer BC, OTHER ==
[~2021-07-07] VITALS: Ht 182.9 cm; Wt 118.8 kg
[~2021-07-07 08:01] MED LIST changes: +LR 1,000 ML IV ONE
[2021-07-07] MEDS ORDERED: BACITRACIN OINTMENT 30GM TUBE As Ordered ONE (09:48)
[2021-07-07] MEDS ORDERED: LIDOCAINE W/EPINEPHRINE 1% 20ML VIAL As Ordered ONE (09:48)
[2021-07-07] MEDS ORDERED: LIDOCAINE 2% 100MG/5ML SDV (FOR ANES.) As Ordered ONE (10:54)
[2021-07-07] MEDS ORDERED: fentaNYL 100 MCG/2 ML INJECTION (J3010) As Ordered ONE (10:54)
[2021-07-07] MEDS ORDERED: propofoL 200 MG/20 ML VIAL As Ordered ONE (10:54)
[2021-07-07] MEDS ORDERED: dexameTHASONE 4 MG/ML 1ML VIAL (J1100 PER 1MG) As Ordered ONE (10:54)
[2021-07-07] MEDS ORDERED: ROCURONIUM BROMIDE 50 MG/5 ML VIAL As Ordered ONE (10:54)
[2021-07-07] MEDS ORDERED: ONDANSETRON 4MG/2ML VIAL As Ordered ONE (10:54)
[2021-07-07] MEDS ORDERED: MIDAZOLAM INJ 2MG/2ML VIAL (J2250 PER 1MG) As Ordered ONE (10:54)
[2021-07-07] MEDS ORDERED: SUGAMMADEX SODIUM 500 MG/5 ML VIAL (BRIDION) As Ordered ONE (11:16)
[2021-07-07] MEDS ORDERED: ONDANSETRON 4MG/2ML VIAL IV PRN ×2 (12:10→12:15)
[2021-07-07] MEDS ORDERED: fentaNYL 100 MCG/2 ML INJECTION (J3010) IV PRN (12:10)
[2021-07-07] MEDS ORDERED: oxyCODONE 5MG TAB PO PRN (12:10)
[2021-07-07] MEDS ORDERED: ANEXSIA, NORCO 7.5MG/325MG TABLET(HYDROCODONE/APAP) PO PRN (12:10)
[2021-07-07] MEDS ORDERED: LR 1,000 ML IV SCH ×2 (12:10)
[2021-07-07 12:20] VITALS: BP 143/69
--- NOTE | 2021-07-07 15:28 | ROOPDOC ---
[facility] Report Of Operation Report of Operation DATE OF PROCEDURE: 07/07/21 PREPROCEDURE DIAGNOSES: Left posterior neck. POSTPROCEDURE DIAGNOSES: Same. PROCEDURE PERFORMED: Excision of left posterior neck mass. SURGEON: MD SUPERVISOR MILL: MD Pavan ANESTHESIA: General. ESTIMATED BLOOD LOSS: Approximately 10 mL. COMPLICATIONS: None. REMARKS: . FINDINGS: SPECIMENS REMOVED: Left posterior neck mass PROCEDURE NOTE: Francis is this 61-year-old gentleman who was seen in the office and diagnosed the above condition. Decision was made in consultation with the patient after explanation of the risks and benefits to undergo the above-named procedure. He was admitted through same-day surgery program taken to the operating room is ministered a general anesthetic via intravenous injection. He was then flipped into the prone position. The neck was prepped and draped in usual sterile fashion. The surgical marking pen was used to traced the proposed incision line on the posterior left portion of the neck over approximately 8 cm mass. We injected the incision line with 1% lidocaine with epinephrine. Using a 15 blade we incised the skin sharply we dissected down through the fascia and identified what appeared to be a large lipoma. We carefully dissected circumferentially and used the harmonic scalpel to ligate small vessels in the process. The mass was then freed from the deep portion of the neck off the deep musculature. This was sent to the pathologist for tissue identification. We irrigated thoroughly. We then closed the skin in 2 layers the first layer was interrupted 4-0 Vicryl suture. Skin was closed with marleny. Bacitracin ointment was placed over the incision and a dressing applied. Patient was allowed recover from anesthetic and taken the postanesthesia care area in stable condition. There were no complications during this procedure. DESCRIPTION OF PROCEDURE: . Ricki Alvarez MD Jul 07, 2021 15:27
[2021-07-07] MEDS ORDERED: BACITRACIN OINTMENT 30GM TUBE TOP SCH (21:00)
== END 2021-07-07 13:52 | disposition home or self-care (01) ==
LOC: M SDC 08:01
PROVIDERS: ATTEND Otolaryngology
DX: D17.0 Benign lipomatous neoplasm of skin and subcutaneous tissue of head, face and neck (principal); I10 Essential (primary) hypertension; G47.33 Obstructive sleep apnea (adult) (pediatric); J44.9 Chronic obstructive pulmonary disease, unspecified; E78.00 Pure hypercholesterolemia, unspecified; G35 Multiple sclerosis; I25.10 Atherosclerotic heart disease of native coronary artery without angina pectoris; I25.2 Old myocardial infarction; F17.290 Nicotine dependence, other tobacco product, uncomplicated; K52.9 Noninfective gastroenteritis and colitis, unspecified; L50.9 Urticaria, unspecified; E83.52 Hypercalcemia; Z88.0 Allergy status to penicillin; Z79.899 Other long term (current) drug therapy
CPT/HCPCS: 11424; 88305; J1100; J2250; J2405; J3010

== ENCOUNTER → 2021-11-04 | Outpatient (CLI) | payer BC, OTHER ==
[~2021-11-04] MED LIST changes: -LR 1,000 ML IV ONE
[2021-11-04 16:55] LABS: BLOOD UREA NITROGEN 6 MG/DL (7-18); CALCIUM LEVEL 10.6 MG/DL (8.8-10.2); CARBON DIOXIDE LEVEL 26 MEQ/L (21-32); CHLORIDE LEVEL 112 MEQ/L (98-107); CREATININE FOR GFR 0.72 MG/DL (0.70-1.30); GLOMERULAR FILTRATION RATE > 60.0 (>49); GLUCOSE, FASTING 81 MG/DL (70-100); PHOSPHORUS LEVEL 1.5 MG/DL (2.5-4.9); POTASSIUM SERUM 4.1 MEQ/L (3.5-5.1); SODIUM LEVEL 143 MEQ/L (136-145)
[2021-11-04 17:06] LABS: PTH INTACT 133.1 PG/ML (18.5-88.0)
== END ==
LOC: M LAB 15:13
PROVIDERS: ATTEND Student in an Organized Health Care Education/Training Program
DX: E83.52 Hypercalcemia (principal)

== ENCOUNTER → 2021-12-12 | Outpatient (CLI) | payer BC, OTHER ==
[2021-12-12 16:46] LABS: BLOOD UREA NITROGEN 7 MG/DL (7-18); CALCIUM LEVEL 10.1 MG/DL (8.8-10.2); CARBON DIOXIDE LEVEL 25 MEQ/L (21-32); CHLORIDE LEVEL 111 MEQ/L (98-107); CREATININE FOR GFR 0.64 MG/DL (0.70-1.30); GLOMERULAR FILTRATION RATE > 60.0 (>49); GLUCOSE, FASTING 90 MG/DL (70-100); PHOSPHORUS LEVEL 2.1 MG/DL (2.5-4.9); POTASSIUM SERUM 4.4 MEQ/L (3.5-5.1); SODIUM LEVEL 138 MEQ/L (136-145)
== END ==
LOC: M LAB 15:21
PROVIDERS: ATTEND Student in an Organized Health Care Education/Training Program
DX: E83.52 Hypercalcemia (principal); G89.4 Chronic pain syndrome

== ENCOUNTER → 2021-12-13 | Outpatient (CLI) | payer BC, OTHER ==
[2021-12-14 22:10] LABS: CALCIUM, 24 HOUR URINE 401.7 MG/24HR (42-353); CALCIUM, URINE 20.6 MG/DL
== END ==
LOC: M LAB 11:07
PROVIDERS: ATTEND Family Medicine
DX: E83.52 Hypercalcemia (principal); G89.4 Chronic pain syndrome

== ENCOUNTER → 2021-12-17 | Outpatient (CLI) | payer BC, OTHER | LOC: M WHC 08:16 | PROVIDERS: ATTEND Family Medicine | DX: E83.52 Hypercalcemia (principal); N64.4 Mastodynia; M85.89 Other specified disorders of bone density and structure, multiple sites; N63.20 Unspecified lump in the left breast, unspecified quadrant; N62 Hypertrophy of breast ==

== ENCOUNTER → 2022-03-26 | Outpatient (CLI) | payer BC, OTHER | LOC: M LAB 15:08 | PROVIDERS: ATTEND Student in an Organized Health Care Education/Training Program | DX: Z79.899 Other long term (current) drug therapy (principal); Z53.9 Procedure and treatment not carried out, unspecified reason ==

== ENCOUNTER → 2022-03-27 | Outpatient (REF) | payer BC, OTHER | LOC: M SFHCPLAZ 14:27 | PROVIDERS: ATTEND Student in an Organized Health Care Education/Training Program | DX: Z79.899 Other long term (current) drug therapy (principal) ==

== ENCOUNTER → 2022-06-18 | Outpatient (CLI) | payer BC, OTHER | LOC: M WHC 11:14 | PROVIDERS: ATTEND Student in an Organized Health Care Education/Training Program | DX: N63.0 Unspecified lump in unspecified breast (principal); N62 Hypertrophy of breast | CPT/HCPCS: 77066; G0279 ==

== ENCOUNTER 2022-09-10 13:43 | Emergency (ER) | payer BC, OTHER ==
[~2022-09-10] VITALS: Ht 182.9 cm; Wt 111.4 kg
[2022-09-10] MEDS ORDERED: HYDR-3716 (13:51)
[2022-09-10] MEDS ORDERED: LISI10TA22 (13:51)
[2022-09-10] MEDS ORDERED: QUET1TAB17 (13:51)
[2022-09-10] MEDS ORDERED: NAPROXEN 250 MG TAB PO ONE (14:15)
[2022-09-10] MEDS ORDERED: LIDOCAINE 5% (LIDODERM) PATCH TD ONE (14:15)
[2022-09-10] MEDS ORDERED: LIDO5DIS41 TOP (15:24)
[2022-09-10 15:40] VITALS: BP 125/63
== END 2022-09-10 15:48 | disposition home or self-care (01) ==
LOC: M ED 13:43
DX: M51.26 Other intervertebral disc displacement, lumbar region (principal); M48.061 Spinal stenosis, lumbar region without neurogenic claudication; F12.10 Cannabis abuse, uncomplicated; Z88.0 Allergy status to penicillin; Z88.1 Allergy status to other antibiotic agents; Z79.811 Long term (current) use of aromatase inhibitors; Z79.899 Other long term (current) drug therapy

== ENCOUNTER → 2022-09-23 | Outpatient (CLI) | payer BC, OTHER ==
[~2022-09-23] MED LIST changes: +LIDO5DIS41 TOP; +LISI10TA22; +QUET1TAB17; +RA T500C2 PO
[2022-09-23 12:18] LABS: BASO % 0.7 % (0.0-1.0); EOS # 0.3 10^3/uL (0.0-0.5); EOS % 4.6 % (0.0-3.0); HEMATOCRIT 43.7 % (42.0-52.0); HEMOGLOBIN 14.8 g/dl (13.5-17.5); LYMPH # 1.1 10^3/uL (1.5-5.0); LYMPH % 18.9 % (24.0-44.0); MEAN CORPUSCULAR HGB CONC 33.9 g/dl (32.0-36.5); MEAN CORPUSCULAR VOLUME 97.5 fl (80.0-96.0); MONO # 0.5 10^3/uL (0.0-0.8); MONO % 8.5 % (2.0-8.0); NEUTROPHILS # 3.9 10^3/uL (1.5-8.5); NEUTROPHILS % 66.6 % (36.0-66.0); PLATELET COUNT, AUTOMATED 176 10^3/uL (150-450); RED BLOOD COUNT 4.48 10^6/uL (4.30-6.10); WHITE BLOOD COUNT 5.9 10^3/uL (4.0-10.0)
[2022-09-23 12:43] LABS: ALKALINE PHOSPHATASE 126 U/L (46-116); ALT/SGPT 43 U/L (7.0-40); AST/SGOT 34 U/L (<34); BILIRUBIN,TOTAL 0.9 MG/DL (0.3-1.2); BLOOD UREA NITROGEN 7 MG/DL (9-23); CALCIUM LEVEL 10.3 MG/DL (8.3-10.6); CARBON DIOXIDE LEVEL 27 MMOL/L (20-31); CHLORIDE LEVEL 107 MMOL/L (98-107); CHOLESTEROL LEVEL 135 MG/DL (<200); CHOLESTEROL RISK RATIO 3.75 (<5); CREATININE FOR GFR 0.66 MG/DL (0.70-1.30); GLOMERULAR FILTRATION RATE > 60.0 (>49); GLUCOSE, FASTING 104 MG/DL (74-106); LDL CHOLESTEROL 73.2 MG/DL (<100); POTASSIUM SERUM 4.4 MMOL/L (3.5-5.1); SODIUM LEVEL 139 MMOL/L (136-145); TOTAL 25(OH) VITAMIN D 28.4 NG/ML (20.0-100.0); TOTAL PROTEIN 6.1 G/DL (5.7-8.2); TRIGLYCERIDES LEVEL 129 MG/DL (<150)
[2022-09-23 14:03] LABS: HEMOGLOBIN A1c 5.4 % (4.0-6.0)
== END ==
LOC: M LAB 10:55
PROVIDERS: ATTEND Student in an Organized Health Care Education/Training Program
DX: Z13.1 Encounter for screening for diabetes mellitus (principal)

== ENCOUNTER → 2022-09-24 | Outpatient (REF) | payer BC, OTHER ==
[2022-09-25 17:52] LABS: CALCIUM, 24 HOUR URINE 310.7 MG/24HR (42-353); CALCIUM, URINE 23.9 MG/DL
== END ==
LOC: M SFHCPLAZ 14:29
PROVIDERS: ATTEND Student in an Organized Health Care Education/Training Program
DX: Z00.00 Encounter for general adult medical examination without abnormal findings (principal); Z13.1 Encounter for screening for diabetes mellitus; Z12.5 Encounter for screening for malignant neoplasm of prostate; E21.3 Hyperparathyroidism, unspecified; E78.5 Hyperlipidemia, unspecified

== ENCOUNTER → 2022-10-05 | Outpatient (CLI) | payer BC, OTHER | LOC: M LABSMTC 10:16 | PROVIDERS: ATTEND Anesthesiology | DX: Z01.812 Encounter for preprocedural laboratory examination (principal); Z20.822 Contact with and (suspected) exposure to COVID-19 ==

== ENCOUNTER 2023-02-25 08:31 | Day surgery (SDC) | payer BC, OTHER ==
[~2023-02-25] VITALS: Ht 182.9 cm; Wt 102.8 kg
[~2023-02-25 08:31] MED LIST changes: +HYDR-3716 PO; -LISI10TA22; +LISI10TA22 PO; +NS 1,000 ML IV ONE; +PREG100C PO; -QUET1TAB17; +QUET1TAB17 PO; -ROPI1TAB3 PO; +ROPI1TAB73 PO; +TIZA10TA PO; +ZOMI5TAB12 PO
[2023-02-25] MEDS ORDERED: LIDOCAINE 1% MDV 20ML VIAL As Ordered ONE (09:55)
[2023-02-25] MEDS ORDERED: propofoL 200 MG/20 ML VIAL As Ordered ONE (09:55)
[2023-02-25 10:00] VITALS: BP 169/77; TEMP 97.9; O2SAT 97
== END 2023-02-25 10:22 | disposition home or self-care (01) ==
LOC: M OPP 08:31
PROVIDERS: ATTEND Surgery
DX: Z12.11 Encounter for screening for malignant neoplasm of colon (principal); Z86.010 Personal history of colon polyps; D12.6 Benign neoplasm of colon, unspecified; Z87.891 Personal history of nicotine dependence; Z79.02 Long term (current) use of antithrombotics/antiplatelets; Z88.0 Allergy status to penicillin; Z88.1 Allergy status to other antibiotic agents

== ENCOUNTER 2023-07-06 14:47 | Outpatient (CLI) | payer BC, OTHER ==
[~2023-07-06 14:47] MED LIST changes: -NS 1,000 ML IV ONE; -PREG100C PO; +PREG100C2 PO
[2023-07-06 15:20] VITALS: BP 141/73; O2SAT 98
[2023-07-06] MEDS ORDERED: methylPREDNISolone 1,000 MG, VIAL MATE ADAPTER 1 EACH in NS 250 ML IV ONE (15:30)
[2023-07-06 16:45] VITALS: BP 139/71; O2SAT 99
== END 2023-07-06 16:45 | disposition home or self-care (01) ==
LOC: M INFU 14:47
PROVIDERS: ATTEND Psychiatry & Neurology Neurology
DX: G35 Multiple sclerosis (principal); Z88.0 Allergy status to penicillin; Z88.1 Allergy status to other antibiotic agents
CPT/HCPCS: 96365; J2930

== ENCOUNTER 2023-07-07 16:16 | Outpatient (CLI) | payer BC, OTHER ==
[~2023-07-07] VITALS: Ht 180.3 cm; Wt 109.0 kg
[~2023-07-07 16:16] MED LIST changes: +methylPREDNISolone 1,000 MG, VIAL MATE ADAPTER 1 EACH in NS 250 ML IV ONE
[2023-07-07 16:20] VITALS: BP 148/68; O2SAT 96
[2023-07-07 17:19] VITALS: BP 124/68; O2SAT 96
== END 2023-07-07 17:30 | disposition home or self-care (01) ==
LOC: M INFU 16:16
PROVIDERS: ATTEND Psychiatry & Neurology Neurology
DX: G35 Multiple sclerosis (principal); Z88.0 Allergy status to penicillin; Z88.1 Allergy status to other antibiotic agents
CPT/HCPCS: 96365; J2930

== ENCOUNTER 2023-07-08 16:35 | Outpatient (CLI) | payer BC, OTHER ==
[~2023-07-08] VITALS: Ht 180.3 cm; Wt 79.0 kg
[~2023-07-08 16:35] MED LIST changes: -methylPREDNISolone 1,000 MG, VIAL MATE ADAPTER 1 EACH in NS 250 ML IV ONE
[2023-07-08] MEDS ORDERED: methylPREDNISolone 1,000 MG, VIAL MATE ADAPTER 1 EACH in NS 250 ML IV ONE (17:00)
[2023-07-08 17:02] VITALS: BP 127/61; O2SAT 98
[2023-07-08 18:03] VITALS: BP 127/60; O2SAT 97
== END 2023-07-08 18:03 ==
LOC: M INFU 16:35
PROVIDERS: ATTEND Psychiatry & Neurology Neurology
DX: G35 Multiple sclerosis (principal); Z88.0 Allergy status to penicillin; Z88.1 Allergy status to other antibiotic agents; Z88.8 Allergy status to other drugs, medicaments and biological substances
CPT/HCPCS: 96365; J2930

== ENCOUNTER → 2023-07-09 | Outpatient (CLI) | payer BC, OTHER ==
[~2023-07-09] VITALS: Ht 177.8 cm; Wt 79.0 kg
[~2023-07-09] MED LIST changes: +methylPREDNISolone 1,000 MG, VIAL MATE ADAPTER 1 EACH in NS 250 ML IV ONE
[2023-07-09 16:55] VITALS: BP 152/72; O2SAT 98
[2023-07-09 18:00] VITALS: BP 144/68; O2SAT 97
== END ==
LOC: M INFU 16:33
PROVIDERS: ATTEND Psychiatry & Neurology Neurology
DX: G35 Multiple sclerosis (principal); Z88.0 Allergy status to penicillin; Z88.1 Allergy status to other antibiotic agents
CPT/HCPCS: 96365; J2930

== ENCOUNTER → 2023-07-23 | Outpatient (CLI) | payer BC, OTHER ==
[~2023-07-23] MED LIST changes: -methylPREDNISolone 1,000 MG, VIAL MATE ADAPTER 1 EACH in NS 250 ML IV ONE
[2023-07-23 19:34] LABS: BASO # 0.1 10^3/uL (0.0-0.2); BASO % 0.8 % (0.0-1.0); EOS # 0.2 10^3/uL (0.0-0.5); EOS % 3.1 % (0.0-3.0); HEMATOCRIT 42.9 % (42.0-52.0); HEMOGLOBIN 14.3 g/dl (13.5-17.5); LYMPH # 1.6 10^3/uL (1.5-5.0); LYMPH % 24.8 % (24.0-44.0); MEAN CORPUSCULAR HEMOGLOBIN 32.5 pg (27.0-33.0); MEAN CORPUSCULAR HGB CONC 33.3 g/dl (32.0-36.5); MEAN CORPUSCULAR VOLUME 97.5 fl (80.0-96.0); MONO # 0.8 10^3/uL (0.0-0.8); MONO % 11.5 % (2.0-8.0); NEUTROPHILS # 3.9 10^3/uL (1.5-8.5); NEUTROPHILS % 58.7 % (36.0-66.0); PLATELET COUNT, AUTOMATED 161 10^3/uL (150-450); WHITE BLOOD COUNT 6.5 10^3/uL (4.0-10.0)
[2023-07-23 19:36] LABS: PSA SCREENING 0.41 NG/ML (< 4.00)
[2023-07-23 19:40] LABS: BLOOD UREA NITROGEN 8 MG/DL (9-23); CALCIUM LEVEL 10.5 MG/DL (8.3-10.6); CARBON DIOXIDE LEVEL 27 MMOL/L (20-31); CHLORIDE LEVEL 110 MMOL/L (98-107); CHOLESTEROL LEVEL 151 MG/DL (<200); CREATININE FOR GFR 0.61 MG/DL (0.70-1.30); GLOMERULAR FILTRATION RATE > 60.0 (>49); GLUCOSE, FASTING 93 MG/DL (74-106); HDL CHOLESTEROL 39.7 MG/DL (>40); LDL CHOLESTEROL 92.1 MG/DL (<100); NON-HDL-C 111.3 MG/DL; POTASSIUM SERUM 4.5 MMOL/L (3.5-5.1); SODIUM LEVEL 141 MMOL/L (136-145); TRIGLYCERIDES LEVEL 96 MG/DL (<150)
[2023-07-23 19:51] LABS: HEMOGLOBIN A1c 5.6 % (4.0-6.0)
== END ==
LOC: M PLALAB 15:25
PROVIDERS: ATTEND Student in an Organized Health Care Education/Training Program
DX: E78.00 Pure hypercholesterolemia, unspecified (principal); E21.3 Hyperparathyroidism, unspecified; G35 Multiple sclerosis; Z13.1 Encounter for screening for diabetes mellitus; Z12.5 Encounter for screening for malignant neoplasm of prostate
CPT/HCPCS: 36415; 80048; 80061; 83036; 85025; G0103

== ENCOUNTER → 2023-08-14 | Outpatient (CLI) | payer BC, OTHER ==
[2023-08-14 16:30] LABS: BLOOD UREA NITROGEN 9 MG/DL (9-23); CREATININE FOR GFR 0.68 MG/DL (0.70-1.30); GLOMERULAR FILTRATION RATE > 60.0 (>49)
== END ==
LOC: M LAB 15:41
PROVIDERS: ATTEND Psychiatry & Neurology Neurology
DX: I10 Essential (primary) hypertension (principal)

== ENCOUNTER → 2023-12-22 | Outpatient (REF) | payer OTHER, BC | LOC: M SFHCPLAZ 09:59 | PROVIDERS: ATTEND Student in an Organized Health Care Education/Training Program | DX: K92.1 Melena (principal) ==

== ENCOUNTER 2024-04-13 20:56 | Emergency (ER) | payer OTHER, BC ==
[2024-04-13 21:14] VITALS: BP 144/65; TEMP 99.4
[2024-04-13] MEDS: KETOROLAC 30 MG/ML 1ML VIAL IV ONE (23:42)
[2024-04-13] MEDS: METHOCARBAMOL 1,000 MG/10 ML VIAL IV ONE (23:42)
[2024-04-13 23:44] LABS: BASO % 0.5 % (0.0-1.0); EOS # 0.2 10^3/uL (0.0-0.5); EOS % 2.6 % (0.0-3.0); HEMATOCRIT 42.4 % (42.0-52.0); HEMOGLOBIN 14.6 g/dl (13.5-17.5); LYMPH # 1.5 10^3/uL (1.5-5.0); LYMPH % 18.7 % (24.0-44.0); MEAN CORPUSCULAR HGB CONC 34.4 g/dl (32.0-36.5); MEAN CORPUSCULAR VOLUME 95.9 fl (80.0-96.0); MONO # 0.8 10^3/uL (0.0-0.8); MONO % 9.4 % (2.0-8.0); NEUTROPHILS # 5.6 10^3/uL (1.5-8.5); NEUTROPHILS % 68.7 % (36.0-66.0); PLATELET COUNT, AUTOMATED 173 10^3/uL (150-450); RED BLOOD COUNT 4.42 10^6/uL (4.30-6.10); WHITE BLOOD COUNT 8.2 10^3/uL (4.0-10.0)
[2024-04-14 00:10] LABS: BLOOD UREA NITROGEN 11 MG/DL (9-23); CALCIUM LEVEL 11.2 MG/DL (8.3-10.6); CARBON DIOXIDE LEVEL 25 MMOL/L (20-31); CHLORIDE LEVEL 110 MMOL/L (98-107); CK-MB VALUE MASS 1.1 NG/ML (<3.6); CPK CREATINE PHOSPHOKINASE 66 U/L (46-171); CREATININE FOR GFR 0.78 MG/DL (0.70-1.30); GLOMERULAR FILTRATION RATE > 60.0 (>49); GLUCOSE, FASTING 88 MG/DL (74-106); MB/CK RELATIVE INDEX 1.66 (< OR =4); POTASSIUM SERUM 4.2 MMOL/L (3.5-5.1); SODIUM LEVEL 138 MMOL/L (136-145)
[2024-04-14 00:12] LABS: THYROID STIMULATING HORMONE 3.211 uIU/ML (0.55-4.78)
[2024-04-14] MEDS: ONDANSETRON 4MG 2ML VIAL IV ONE (01:53)
[2024-04-14] MEDS: MORPHINE 4 MG/ML 1ML VIAL IV PRN (01:53)
[2024-04-14 02:23] VITALS: O2SAT 98
[2024-04-14 03:00] VITALS: O2SAT 98
[2024-04-14] MEDS ORDERED: NAPR-837 PO (03:14)
[2024-04-14] MEDS ORDERED: HYDR-3713 PO (03:14)
[2024-04-14] MEDS ORDERED: METH-1165 PO (03:14)
== END 2024-04-14 03:40 | disposition home or self-care (01) ==
LOC: EDBD 20:56 → M ED 20:56
DX: M54.50 Low back pain, unspecified (principal); I10 Essential (primary) hypertension; J44.9 Chronic obstructive pulmonary disease, unspecified; G35 Multiple sclerosis; F12.10 Cannabis abuse, uncomplicated; Z88.0 Allergy status to penicillin; Z88.8 Allergy status to other drugs, medicaments and biological substances; Z79.1 Long term (current) use of non-steroidal anti-inflammatories (NSAID); Z79.2 Long term (current) use of antibiotics; Z79.899 Other long term (current) drug therapy
CPT/HCPCS: 70450; 72125; 72131; 80048; 82550; 82553; 83605; 83735; 84443; 84484; 85025; 93005; 93041; 94760; 96374; 96375; 99284; J1885; J2405; J2800

== ENCOUNTER → 2024-10-08 | Outpatient (CLI) | payer OTHER, BC ==
[~2024-10-08] MED LIST changes: +HYDR-3713 PO; +METH-1165 PO; +NAPR-837 PO
[2024-10-08 13:09] LABS: HEMATOCRIT 42.3 % (42.0-52.0); HEMOGLOBIN 14.2 g/dl (13.5-17.5); MEAN CORPUSCULAR HEMOGLOBIN 32.6 pg (27.0-33.0); MEAN CORPUSCULAR HGB CONC 33.6 g/dl (32.0-36.5); PLATELET COUNT, AUTOMATED 154 10^3/uL (150-450); RED BLOOD COUNT 4.36 10^6/uL (4.30-6.10); WHITE BLOOD COUNT 5.4 10^3/uL (4.0-10.0)
[2024-10-08 13:35] LABS: ALBUMIN 3.8 G/DL (3.2-5.2); ALKALINE PHOSPHATASE 110 U/L (40-129); ALT/SGPT 44 U/L (7.0-40); AST/SGOT 35 U/L (<34); BILIRUBIN,TOTAL 0.6 MG/DL (0.3-1.2); BLOOD UREA NITROGEN 11 MG/DL (9-23); CALCIUM LEVEL 10.2 MG/DL (8.3-10.6); CARBON DIOXIDE LEVEL 24 MMOL/L (20-31); CHLORIDE LEVEL 110 MMOL/L (98-107); CHOLESTEROL LEVEL 93 MG/DL (<200); CHOLESTEROL RISK RATIO 3.12 (<5); CREATININE FOR GFR 0.79 MG/DL (0.70-1.30); GLOMERULAR FILTRATION RATE > 60.0 (>49); GLUCOSE, FASTING 142 MG/DL (74-106); HDL CHOLESTEROL 29.8 MG/DL (>40); LDL CHOLESTEROL 46.2 MG/DL (<100); NON-HDL-C 63.2 MG/DL; POTASSIUM SERUM 4.3 MMOL/L (3.5-5.1); SODIUM LEVEL 140 MMOL/L (136-145); TRIGLYCERIDES LEVEL 85 MG/DL (<150)
[2024-10-08 13:41] LABS: HEMOGLOBIN A1c 4.8 % (4.0-6.0)
== END ==
LOC: M LAB 12:37
PROVIDERS: ATTEND Student in an Organized Health Care Education/Training Program
DX: Z00.00 Encounter for general adult medical examination without abnormal findings (principal); Z13.1 Encounter for screening for diabetes mellitus; E78.00 Pure hypercholesterolemia, unspecified

== ENCOUNTER 2024-11-17 16:42 | Emergency (ER) | payer BC, OTHER ==
[~2024-11-17] VITALS: Ht 182.9 cm; Wt 84.1 kg
[~2024-11-17 16:42] MED LIST changes: -AMBI5TAB PO; +PREG-35; -PREG100CA; -PREG50CA PO; +PREG50CA87 PO; +ZOLP-532 PO
[2024-11-17 18:51] VITALS: TEMP 98.2
[2024-11-17] MEDS: ACETAMINOPHEN *IV* 1,000 MG in IV 1 EA IV ONE (21:40)
[2024-11-17] MEDS: MORPHINE 4 MG/ML 1ML VIAL IV ONE (21:50)
[2024-11-17] MEDS: METHOCARBAMOL 1,000 MG/10 ML VIAL IV ONE (21:51)
[2024-11-17 22:22] VITALS: BP 136/58; O2SAT 98
[2024-11-17] MEDS ORDERED: NAPR-1405 PO (22:24)
== END 2024-11-17 22:33 | disposition home or self-care (01) ==
LOC: M ED 16:42
DX: S46.011A Strain of muscle(s) and tendon(s) of the rotator cuff of right shoulder, initial encounter (principal); W19.XXXA Unspecified fall, initial encounter; Y92.009 Unspecified place in unspecified non-institutional (private) residence as the place of occurrence of the external cause; Y93.9 Activity, unspecified; Y99.9 Unspecified external cause status; R56.9 Unspecified convulsions; G35 Multiple sclerosis; K21.9 Gastro-esophageal reflux disease without esophagitis; Z87.448 Personal history of other diseases of urinary system; F12.10 Cannabis abuse, uncomplicated; Z79.899 Other long term (current) drug therapy; Z88.0 Allergy status to penicillin; Z88.1 Allergy status to other antibiotic agents
CPT/HCPCS: 73030; 96374; 96375; 99283; J0131; J2800

== ENCOUNTER → 2025-03-26 | Outpatient (CLI) | payer MEDICARE ==
[~2025-03-26] MED LIST changes: +LIDO1ADH93 TOP; -LIDO5DIS41 TOP; +NAPR-1405 PO; -RA T500C2 PO; +TURM500C10 PO
== END ==
LOC: M PLAIMG 13:54
DX: M77.8 Other enthesopathies, not elsewhere classified (principal)